=== PATIENT | male | born 1955 | race Caucasian/White ===

== ENCOUNTER → 2018-09-16 11:47 | Outpatient (CLI) | payer BC, SELFPAY ==
[2018-09-16 13:07] LABS: Blood Urea Nitrogen 25 mg/dL (7-18); Calcium 9.8 mg/dL (8.5-10.1); Carbon Dioxide 30 mmol/L (21.0-32.0); Chloride 108 mmol/L (98-107); Creatinine,Serum 1.29 mg/dL (0.70-1.30); Estimated Glomerular Filt Rate 56 ml/min (>60); GFR (African American) 68 ML/MIN (>60); Glucose 100 mg/dL (74-106); Sodium 145 mmol/L (136-145)
[2018-09-16 13:10] LABS: Prostate Specific Ag, Diagnost < 0.05 ng/mL (0.0-4.0)
== END ==
PROVIDERS: Visit Provider Urology
DX: C61 Malignant neoplasm of prostate (principal); N28.9 Disorder of kidney and ureter, unspecified
CPT/HCPCS: 36415; 80048; 84153

== ENCOUNTER 2020-09-24 11:22 | Emergency (ER) | payer MEDICARE, SELFPAY ==
[2020-09-24 12:07] VITALS: BP 141/78; PULSE 68; RESP 19; TEMP 36.9; O2SAT 98; BMI 26.2
--- NOTE | 2020-09-24 12:15 | HMH.EDUTC ---
[facility] Disposition Clinical Impression: Urinary problem in male Disposition: Home, Self-Care Condition on Discharge: Good Instructions: DI for Flank Pain Additional Instructions: Make sure that you are drinking plenty of fluids *Follow up immediately if pain returns or worsens Straight to the ER if any life threatening symptoms Return if needed Referrals: Katalina Victor MD [Primary Care Provider] - As needed Edmund Hemphill MD [Staff Physician] - Time of Disposition: 12:32 Medical Decision Making - Renzo Inquiry Pt receiving controlled substance: No Renzo was queried for this patient: No Vital Signs: 09/24/20 12:07 09/24/20 12:43 Temperature 98.4 F 98.4 F Temperature Source Oral Oral Pulse Rate 68 Pulse Rate [Right Brachial] 68 Respiratory Rate 19 19 Blood Pressure 141/78 H Blood Pressure [Right Arm] 141/78 H Blood Pressure Mean [Right Arm] 99 Blood Pressure Source Automatic Cuff Blood Pressure Source [Right Arm] Automatic Cuff Blood Pressure Position Sitting Blood Pressure Position [Right Arm] Sitting 02 Sat by Pulse Oximetry 98 Oxygen Delivery Method Room Air - Lab Data Lab results reviewed: Yes: I reviewed the patient's lab results. Medical Decision Narrative: Patient family initially requesting CT to rule out Kidney stone, family informed that CT could not be done in the [facility] and he would have to be transferred to the ED SPoke with patient and patient initially agreed to be transferred to the ED, spoke with ED physician Dr Zayas and informed him of patient request for CT and that patient would have to be transferred to ED for test and he agreed with transfer, then spoke with patient again about transfer and patient refused transfer to the ED at time he discussed with family and advised that he was not having any pain at this time and would return to the ED if pain returned and/or worsened and family agreed or follow up with Dr Hemphill on Saturday Patient had prostate previously removed, Patient states that he is feeling ok at this time and not having any flank pain [facility] HPI - General Stated complaint: kidney stone Time Seen by Provider: 09/24/20 12:15 Mode of Arrival: Family Vehicle Description of Symptoms (Recalled from Triage Doc. by RN): Pt c/o possible kidney stone, trouble with urination, left side flank pain, and nausea since Thurs HEENT Symptoms (Recalled from RN notes): No Resp Symptoms (Recalled from RN notes): No Skin Symptoms (Recalled from RN notes): No MS Symptoms (Recalled from RN notes): No Functional Status (Recalled from RN notes): wnl - History of Present Illness Provider Complaint: Patient states that he has a history of Kidney stones State that on he started having pain in his right flank area that would come and go like he had before with Kidney stone and made him sick at his stomach State that ever since he has been having urination issues States that at times he will be urinating and then his urine stream will stop and he has to push to get it started and had some burning with urination State that this morning he had some flank pain in his left side and was unsure if he may have a kidney infection or stone and wanted to get his urine checked States - Related Data Home Medications Medication Instructions Recorded Confirmed apple cider vinegar 600 mg capsule mg PO cap 09/16/18 11/24/19 aspirin 81 mg tablet,delayed 81 mg PO DAILY 09/16/18 11/24/19 release atorvastatin 80 mg tablet 80 mg PO DAILY 09/16/18 11/24/19 cetirizine 10 mg tablet 10 mg PO DAILY PRN tab 09/16/18 11/24/19 levothyroxine 75 mcg capsule 75 mcg PO DAILY 09/16/18 11/24/19 allopurinol 100 mg tablet 100 mg PO DAILY 12/16/18 11/24/19 multivitamin,nl-npwj-[id number] 1 tab PO DAILY 12/16/18 11/24/19 Allergies Allergy/AdvReac Type Severity Reaction Status Date / Time No Known Allergies Allergy Unverified 11/24/19 11:04 - Worker's Comp Is this a Worker's Comp case?: No [facility] History
[2020-09-24 12:43] VITALS: BP 141/78; PULSE 68; RESP 19; TEMP 36.9; O2SAT 98
[2020-09-24 21:30] LABS: Apearance,Urine Clear (Clear); Bilirubin,Urine Negative (Negative); Blood, Urine Negative (Negative); Color,Urine Yellow (Yellow); Glucose,Urine (UA) Negative (Negative); Ketones,Urine Negative (Negative); PH,Urine 5.5 (5.0-8.5); Protein,Urine Negative (Negative)
[2020-09-24 21:31] LABS: UTC Leukocyte Esterase,Urine Negative (Negative); UTC Nitrate,Urine Negative (Negative); Urobilinogen,Urine 0.2 EU/dl (0.2)
== END 2020-09-24 12:43 | disposition home or self-care (01) ==
PROVIDERS: Emergency Provider Nurse Practitioner; PCP Family Medicine
DX: N39.9 Disorder of urinary system, unspecified (principal); E78.5 Hyperlipidemia, unspecified
CPT/HCPCS: G0463; 81003; 99201

== ENCOUNTER → 2020-11-29 08:13 | Outpatient (CLI) | payer MEDICARE, SELFPAY | PROVIDERS: PCP Family Medicine; Visit Provider Family Medicine | DX: Z20.822 Contact with and (suspected) exposure to COVID-19 (principal); U07.1 COVID-19; R50.9 Fever, unspecified | CPT/HCPCS: U0003 ==

== ENCOUNTER → 2020-11-30 07:56 | Outpatient (CLI) | payer MEDICARE, SELFPAY ==
[2020-11-30] VITALS (7 sets, daily range): BP systolic 107–138; BP diastolic 67–79; PULSE 71–89; RESP 18; TEMP 36.7–36.9; O2SAT 91–98
== END ==
PROVIDERS: PCP Family Medicine; Visit Provider Family Medicine
DX: U07.1 COVID-19 (principal)
CPT/HCPCS: 96365

== ENCOUNTER → 2020-12-14 17:19 | Outpatient (CLI) | payer MEDICARE, SELFPAY ==
--- NOTE | 2020-12-14 | XR_ITS ---
PROCEDURE: XR CHEST AP CLINICAL HISTORY: COMPARISON: CR CXR CHEST(2 VIEWS-NOT PORTABLE) from 09/09/2015 FINDINGS: The cardiomediastinal silhouette and pulmonary vascularity are within normal limits. There are sternal wire sutures and a surgical clip probably from previous CABG. The lungs are clear without infiltrates, suspicious nodules, or pleural effusions. There is minimal discoid atelectasis right costophrenic angle. No acute bony abnormalities. IMPRESSION: Minimal right basilar atelectasis or scarring, no acute pneumonic infiltrate seen Dictated by: Dr. Vadim Swenson MD 12/15/2020 08:38 Dr. Vadim Swenson MD in [place] 12/15/2020 08:38
[2020-12-14 18:17] LABS: Basophils % 0.2 % (0.1-2.0); Eosinophils % 0.4 % (0.1-12.0); Hematocrit 42.6 % (42.0-52.0); Hemoglobin 13.6 g/dL (14.1-18.0); Lymphocytes # 0.4 K/mm3 (0.7-4.5); Lymphocytes % 4.7 % (10-50); Mean Corpuscular Volume 100.1 fl (80-94); Mean Platelet Volume 7.9 fl (7.4-10.4); Monocytes # 0.3 K/mm3 (0.1-1.0); Monocytes % 3.9 % (1.7-9.3); Neutrophils # 7.7 K/mm3 (1.8-7.8); Neutrophils % 90.9 % (37.0-80.0); Platelet Count 154 K/mm3 (142-424); Red Blood Count 4.25 M/mm3 (4.60-6.20); White Blood Count 8.5 K/mm3 (4.8-10.8)
[2020-12-14 18:21] LABS: MANUAL DIFFERENTIAL MANUAL DIFFERENTIAL (MANUAL DIFF)
[2020-12-14 20:25] LABS: Lymphocytes % 4 % (10-50); Macrocytosis 1+; Monocytes % 1 % (2-9); Neutrophils % 95 % (42-76); Platelet Estimate Normal; Total Cells Counted 100
== END ==
PROVIDERS: PCP Family Medicine; Visit Provider Family Medicine
DX: R06.02 Shortness of breath (principal)
CPT/HCPCS: 36415; 71045; 85007; 85025

== ENCOUNTER → 2021-02-03 11:05 | Outpatient (CLI) | payer MEDICARE, SELFPAY ==
--- NOTE | 2021-02-03 11:14 | XR_ITS ---
PROCEDURE: XR FOOT LT MIN 3V CLINICAL INDICATION: LT FOOT SWELLING,LT FOOT PAIN COMPARISON: No exams were available for comparison FINDINGS: Osteoarthritic changes 1st MTP joint. There has been prior amputation at the distal aspect of the proximal phalanx of the 4th toe. Generalized vascular calcification. No acute fracture or dislocation. No bony destructive process Other findings:None. IMPRESSION: Chronic changes as described above Dictated by: Raúl Ellis MD 02/03/2021 13:07 Raúl Ellis MD in [place] 02/03/2021 13:07
== END ==
PROVIDERS: PCP Family Medicine; Visit Provider Nurse Practitioner Family
DX: M79.89 Other specified soft tissue disorders (principal); M79.672 Pain in left foot
CPT/HCPCS: 73630

== ENCOUNTER → 2021-03-20 07:12 | Outpatient (CLI) | payer MEDICARE, SELFPAY ==
[2021-03-20 08:41] LABS: Prostate Specific Ag, Diagnost < 0.064 ng/ml (0.0-4.0)
== END ==
PROVIDERS: Visit Provider Urology
DX: R97.20 Elevated prostate specific antigen [PSA] (principal)
CPT/HCPCS: 36415; 84153

== ENCOUNTER 2023-09-19 18:37 | Emergency (ER) | payer MEDICARE, SELFPAY ==
[2023-09-19 18:38] VITALS: BP 155/85; PULSE 71; RESP 16; TEMP 36.7; O2SAT 99; BMI 25.8
--- NOTE | 2023-09-19 18:44 | HMH.EDGENADL ---
Discharge Plan Disposition Patient Disposition: Home, Self-Care Condition: Good Chief Complaint: PAIN Prescriptions Prescriptions: No Action atorvastatin 80 mg tablet 80 mg PO DAILY levothyroxine 75 mcg capsule 75 mcg PO DAILY cetirizine [Allergy Relief (cetirizine)] 10 mg tablet 10 mg PO DAILY PRN aspirin [Adult Low Dose Aspirin] 81 mg tablet,delayed release (DR/EC) 81 mg PO DAILY apple cider vinegar 600 mg capsule PO allopurinol 100 mg tablet 100 mg PO DAILY Complete Multivitamin tablet 1 tab PO DAILY Referrals Follow up/Referrals: Katalina Victor MD [Primary Care Provider] - See instructions Clinical Impressions Clinical Impression: Kidney stone Stand Alone Forms Stand Alone Forms: Transfer Record - ED Instructions Patient Instructions: DI for Kidney Stones Discharge ED Provider: Daxa Pandey General Adult HPI General Chief complaint: PAIN Stated complaint: back pain Time Seen by Provider: 09/19/23 18:39 History of Present Illness HPI narrative: Patient has a PMHx significant for prostate cancer s/p resection, CKD, CAD status post CABG x 3 who presents to the ED with complaints of left leg pain. Patient notes that since 4 PM today, he has been having progressively worsening sharp, stabbing, colicky pain in the left flank. Patient notes a long history of kidney stones, but has not had one in a few years. Patient denies any hematuria, dysuria. Related Data Home Medications Medication Instructions Recorded Confirmed apple cider vinegar 600 mg capsule mg PO 09/16/18 03/24/21 aspirin 81 mg tablet,delayed 81 mg PO DAILY 09/16/18 03/24/21 release (Adult Low Dose Aspirin) atorvastatin 80 mg tablet 80 mg PO DAILY 09/16/18 03/24/21 cetirizine 10 mg tablet (Allergy 10 mg PO DAILY PRN 09/16/18 03/24/21 Relief (cetirizine)) levothyroxine 75 mcg capsule 75 mcg PO DAILY 09/16/18 03/24/21 allopurinol 100 mg tablet 100 mg PO DAILY 12/16/18 03/24/21 multivitamin,[id number]-[id number] 1 tab PO DAILY 12/16/18 03/24/21 (Complete Multivitamin tablet) Allergies Allergy/AdvReac Type Severity Reaction Status Date / Time No Known Allergies Allergy Unverified 03/24/21 14:37 [facility] Disclaimer: The information contained in this section may have been updated after the patient was seen, as this information can be updated by other users. Social History Smoking Status: Never smoker alcohol intake: never substance use type: denies use current occupational status: employed and retired Travel in the last 8 weeks: None household members: spouse housing: house ROS Obtained: Yes All systems reviewed & no additional complaints except as documented Physical Exam General General appearance: alert and in no apparent distress Head Head exam: atraumatic, normocephalic and normal inspection Eye Eye exam: Present normal appearance, PERRL and EOMI; Absent scleral icterus or nystagmus ENT ENT exam: Present normal exam, mucous membranes moist and normal external ear exam Neck Neck exam: Present normal inspection, full ROM and trachea midline Chest Chest inspection: Present normal inspection and symmetric chest wall rise; Absent tenderness Respiratory Respiratory exam: Present normal lung sounds bilaterally; Absent respiratory distress, wheezes or accessory muscle use Cardiovascular Cardiovascular exam: Present regular rate, normal rhythm and normal heart sounds Abdominal Exam Abdominal exam: Present soft; Absent distention, tenderness, guarding, rebound, rigidity, trauma, ascites or pulsatile mass Abdominal tenderness: Present LLQ exam: Present deferred Extremities Exam Extremities exam: Present normal inspection and full ROM; Absent tenderness Back Exam Back exam: Present normal inspection and full ROM; Absent tenderness Neurological Exam Neurological exam: Present alert, oriented X3, normal gait and motor sensory deficit Psychiatric
--- NOTE | 2023-09-19 18:46 | CT_ITS ---
PROCEDURE INFORMATION: Exam: CT Abdomen And Pelvis With Contrast Exam date and time: 09/19/2023 7:21 PM Age: 68 years old Clinical indication: Abdominal pain; Flank; Left; Additional info: L flank pain, possible stone TECHNIQUE: Imaging protocol: Computed tomography of the abdomen and pelvis with contrast. Radiation optimization: All CT scans at this facility use at least one of these dose optimization techniques: automated exposure control; mA and/or kV adjustment per patient size (includes targeted exams where dose is matched to clinical indication); or iterative reconstruction. Contrast material: ISOVUE; Contrast volume: 75 ml; Contrast route: IV; REPORTING DATA: Count of CT and Cardiac NM exams in prior 12 months: This patient has received 0 known CTs and 0 known cardiac nuclear medicine studies in the 12 months prior to the current study. COMPARISON: ABDPELW/O CT ABD PELVIS W/O CONTRAST 07/09/2017 5:09 PM FINDINGS: Lungs: Lung bases are clear. Coronary arteries: Extensive coronary artery calcifications suggesting coronary artery disease. Liver: Normal. No mass. Gallbladder and bile ducts: Normal. No calcified stones. No ductal dilation. Pancreas: A complex inhomogeneous 2.3 x 1.6 x 2.0 cm mixed cystic solid lesion in the posterior pancreatic head centered on axial image 58 and coronal image 34. This has developed in the interval. Pancreas otherwise unremarkable. Spleen: Normal. No splenomegaly. Adrenal glands: Normal. No mass. Kidneys and ureters: Multiple nonobstructing right kidney stones largest measuring 6 mm. Multifocal right renal scarring. Subcentimeter low-density lesions noted in the superior and anterior mid right kidney too small to characterize but likely cysts. No follow-up of these lesions advised. A 2 cm cyst in the anterior mid left kidney and a 1.8 cm cyst in the anterolateral mid to lower left kidney. No follow-up of these lesions advised. Nonobstructing left kidney stones largest measuring 4 mm noted. Obstructing 5 x 7 mm proximal left ureteral stone 2 cm distal to the ureteropelvic junction with associated mild hydroureteronephrosis. Remainder of the left ureter is normal. Stomach and bowel: Multiple diverticula in the sigmoid colon. Colon otherwise unremarkable. GI tract structures otherwise unremarkable with no evident wall thickening allowing for incomplete distention. Appendix: Appendix is normal. No evidence of appendicitis. Intraperitoneal space: Unremarkable. No free air. No significant fluid collection. Vasculature: Atherosclerotic changes of the aorta and iliacs noted. No evidence of aneurysm. Lymph nodes: Unremarkable. No enlarged lymph nodes. Urinary bladder: Unremarkable as visualized. Reproductive: Status post prostatectomy.. Bones/joints: Unremarkable. No acute fracture. Soft tissues: Unremarkable. IMPRESSION: 1. Obstructing 5 x 7 mm proximal left ureteral stone with mild left-sided hydroureteronephrosis. 2. Bilateral nonobstructing kidney stones. 3. Interval development of a 2.3 cm complex inhomogeneous mixed solid cystic mass lesion in the posterior pancreatic head. Further assessment with nonemergent MRI of the pancreas is advised. 4. Extensive coronary artery calcifications suggesting coronary artery disease. 5. Additional nonemergent findings as above. COMMENTS: Consistent with the [employer]'s Incidental Findings Committee white paper (J Am Howard Radiol 2018): Any incidental renal lesion less than 1 cm or classified as too small to characterize, or any incidental cystic renal lesion characterized as simple-appearing, is likely benign. No follow-up imaging is recommended for these lesions per consensus recommendations based on imagin
[2023-09-19 18:52] LABS: Microscopic, Urine URINE MICROSCOPIC (MICROSCOPIC)
[2023-09-19 18:59] LABS: Appearance,Urine CLEAR (Clear); Bilirubin,Urine Negative (Negative); Blood, Urine 3+ (Negative); Color,Urine YELLOW (Yellow); Glucose,Urine (UA) TRACE (Negative); Ketones,Urine Negative (Negative); Leukocyte Esterase,Urine Negative (Negative); Nitrate,Urine Negative (Negative); PH,Urine 5.5 (5.0-8.5); Protein,Urine Negative (Negative); Specific Gravity, Urine 1.025 (1.005-1.030); Urobilinogen,Urine 0.2 EU/dl (0.2)
[2023-09-19 19:01] LABS: Basophils % 0.5 % (0.1-2.0); Eosinophils # 0.1 K/mm3 (0.0-0.4); Eosinophils % 3.5 % (0.1-12.0); Hematocrit 45.7 % (42.0-52.0); Lymphocytes # 1.3 K/mm3 (0.7-4.5); Lymphocytes % 35.9 % (10-50); Mean Corpuscular HGB Conc 32.8 g/dL (31.8-35.4); Mean Corpuscular Hemoglobin 33.4 pg (27.0-31.2); Mean Corpuscular Volume 101.9 fl (80-94); Mean Platelet Volume 8.2 fl (7.4-10.4); Monocytes # 0.2 K/mm3 (0.1-1.0); Monocytes % 6.8 % (1.7-9.3); Neutrophils # 1.9 K/mm3 (1.8-7.8); Neutrophils % 53.3 % (37.0-80.0); Platelet Count 116 K/mm3 (142-424); Red Blood Count 4.48 M/mm3 (4.60-6.20); White Blood Count 3.5 K/mm3 (4.8-10.8)
[2023-09-19 19:03] LABS: Chloride 105 mmol/L (98-107); Potassium 4.5 mmoL/L (3.5-5.1); Sodium 141 mmol/L (136-145)
[2023-09-19 19:06] LABS: Alanine Aminotransferase 37 U/L (12-78); Albumin Level 4.4 g/dl (3.5-5.0); Albumin/Globulin Ratio 1.8 (1.1-1.8); Alkaline Phosphatase 84 U/L (38-126); Anion Gap 10.5 mEq/L (5-15); Aspartate Amino Transferase 40 U/L (17-59); Bilirubin,Total 0.6 mg/dl (0.2-1.3); Blood Urea Nitrogen 28 mg/dl (9-20); Calcium 8.9 mg/dl (8.4-10.2); Carbon Dioxide 30 mmol/L (22.0-30.0); Creatinine Clearance Estimated 53 mL/min (50-200); Estimated Glomerular Filt Rate 46 ml/min (>60); GFR (African American) 56 ML/MIN (>60); Globulin 2.4 g/dL (1.3-3.2); Glucose 189 mg/dl (74-100); Lipase 115 U/L (23-300); Total Protein,Serum 6.8 g/dl (6.3-8.2)
[2023-09-19 19:13] LABS: Bacteria,Urine Trace /lpf; Squamous Epithelial Cell,Urine Occasional #/hpf (0-5)
[2023-09-19 19:30] VITALS: BP 140/82; O2SAT 90
[2023-09-19 20:00] VITALS: BP 125/64; O2SAT 98
[2023-09-19 20:30] VITALS: BP 119/63; PULSE 58; O2SAT 93
--- NOTE | 2023-09-19 20:53 | PC.NURSE ---
Called [facility] about possible transfer per Dr Pandey. Spoke to Nicho KING and gave him all the pts information. Will call back when they find a room. FERMÍN
--- NOTE | 2023-09-19 21:21 | PC.NURSE ---
Notified provider that [facility] updated us that they do not have urology coverage this weekend.
--- NOTE | 2023-09-19 21:22 | PC.NURSE ---
received call back from [facility]. Spoke with drake. stated there is no uro coverage throughout [place], [place], [place]
--- NOTE | 2023-09-19 21:26 | PC.NURSE ---
[facility] has no Urology this date. CR
--- NOTE | 2023-09-19 21:26 | PC.NURSE ---
Per Dr Pandey called [facility] about possible transfer for Urology. Speaking with [facility] physician now. FERMÍN
[2023-09-19 21:56] VITALS: BP 137/81; PULSE 59; RESP 15; TEMP 37.1; O2SAT 93
--- NOTE | 2023-09-26 09:55 | PC.NURSE ---
urine culture results show klebsiella aerogenes and mixed urogenital morgan, PEr sample is contaminated, no further orders at this time
== END 2023-09-19 21:59 | disposition home or self-care (01) ==
PROVIDERS: Emergency Provider Emergency Medicine; PCP Family Medicine
DX: N20.0 Calculus of kidney (principal); N18.9 Chronic kidney disease, unspecified; I25.10 Atherosclerotic heart disease of native coronary artery without angina pectoris; Z85.46 Personal history of malignant neoplasm of prostate
CPT/HCPCS: 74177; 80053; 81001; 83690; 85025; 87086; 96361; 96374; 96375; 96376; 99285; J2405; Q9967

== ENCOUNTER 2023-10-08 00:31 | Emergency (ER) | payer MEDICARE, SELFPAY ==
[2023-10-08 00:34] VITALS: BP 143/84; PULSE 75; RESP 18; TEMP 36.6; O2SAT 97; BMI 25.1
--- NOTE | 2023-10-08 00:56 | HMH.EDGENADL ---
Discharge Plan Disposition Patient Disposition: Home, Self-Care Condition: Good Prescriptions Prescriptions: No Action atorvastatin 80 mg tablet 80 mg PO DAILY levothyroxine 75 mcg capsule 75 mcg PO DAILY cetirizine [Allergy Relief (cetirizine)] 10 mg tablet 10 mg PO DAILY aspirin [Adult Low Dose Aspirin] 81 mg tablet,delayed release (DR/EC) 81 mg PO DAILY apple cider vinegar 600 mg capsule 600 mg PO DAILY allopurinol 100 mg tablet 100 mg PO DAILY Complete Multivitamin tablet 1 tab PO DAILY Referrals Follow up/Referrals: Katalina Victor MD [Primary Care Provider] - See instructions Activity Restrictions/Add. Instructions Additional Instructions/Restrictions: You were evaluated in the ER today for urinary retention. Keep the Zamora catheter in place as directed. Call and make an appointment with Dr. Hemphill as soon as possible for reevaluation. Make an appoint with your primary care physician for reevaluation in 2 to 3 days. Return to the ER with new, worsening, or otherwise concerning symptoms. Clinical Impressions Clinical Impression: Acute urinary retention Instructions Patient Instructions: DI for Urinary Tract Infection (UTI), DI for Urinary Tract Infection in Children Discharge ED Provider: Colette Tidwell General Adult HPI General Chief complaint: Urogenital-Male Stated complaint: unable to urinate Time Seen by Provider: 10/08/23 00:40 Mode of Arrival: Ambulatory Source of Information: Patient Limitations: No Limitations Description of Symptoms (Recalled from ER Triage Doc. by RN): Patient had a urinary stent took out today, has not urinated good since. None since 1800. History of Present Illness HPI narrative: This 68-year-old male with a history of kidney stones presents to the ER with concerns of urinary retention. Patient states he had a kidney stone over that had to be broken up and removed. He states after that he had a urethral stent which she was instructed he could remove yesterday. He removed it around 8 AM on 10/07/2023 (yesterday). He states he urinated normally all day. He states his urine was slightly orange due to the medications he is on, but he denies blood. Patient states around 5 PM he last urinated normally. 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 After that, he has been unable to urinate. He states his bladder feels full and he has the sensation of needing to urinate but has failed multiple times despite straining and sitting to urinate. He denies fevers, chills, dysuria, flank pain, nausea, vomiting, diarrhea, or other positive review of systems at this time Related Data Home Medications Medication Instructions Recorded Confirmed apple cider vinegar 600 mg capsule 600 mg PO DAILY 09/16/18 10/08/23 aspirin 81 mg tablet,delayed 81 mg PO DAILY 09/16/18 10/08/23 release (Adult Low Dose Aspirin) atorvastatin 80 mg tablet 80 mg PO DAILY 09/16/18 10/08/23 cetirizine 10 mg tablet (Allergy 10 mg PO DAILY 09/16/18 10/08/23 Relief (cetirizine)) levothyroxine 75 mcg capsule 75 mcg PO DAILY 09/16/18 10/08/23 allopurinol 100 mg tablet 100 mg PO DAILY 12/16/18 10/08/23 multivitamin,uh-afti-qxkrxmlz 1 tab PO DAILY 12/16/18 10/08/23 (Complete Multivitamin tablet) Allergies Allergy/AdvReac Type Severity Reaction Status Date / Time No Known Allergies Allergy Unverified 03/24/21 14:37 [facility] Disclaimer: The information contained in this section may have been updated after the patient was seen, as this information can be updated by other users. Social History Smoking Status: Never smoker alcohol intake: never substance use type: denies use current occupational status: employed and retired Travel in the last 8 weeks: None household members: spouse housing: house ROS Obtained: Yes All systems reviewed & no additio
[2023-10-08 01:12] LABS: Microscopic, Urine URINE MICROSCOPIC (MICROSCOPIC)
[2023-10-08 01:14] LABS: Appearance,Urine CLEAR (Clear); Basophils % 0.7 % (0.1-2.0); Bilirubin,Urine Negative (Negative); Blood, Urine TRACE-I (Negative); Color,Urine YELLOW (Yellow); Eosinophils # 0.2 K/mm3 (0.0-0.4); Eosinophils % 4.8 % (0.1-12.0); Glucose,Urine (UA) Negative (Negative); Hematocrit 40.9 % (42.0-52.0); Hemoglobin 14.1 g/dL (14.1-18.0); Ketones,Urine Negative (Negative); Leukocyte Esterase,Urine Negative (Negative); Lymphocytes % 28.7 % (10-50); Mean Corpuscular HGB Conc 34.5 g/dL (31.8-35.4); Mean Corpuscular Hemoglobin 33.7 pg (27.0-31.2); Mean Corpuscular Volume 97.9 fl (80-94); Mean Platelet Volume 8.5 fl (7.4-10.4); Monocytes # 0.2 K/mm3 (0.1-1.0); Monocytes % 5.8 % (1.7-9.3); Neutrophils # 2.1 K/mm3 (1.8-7.8); Neutrophils % 59.9 % (37.0-80.0); Nitrate,Urine POSITIVE (Negative); Platelet Count 128 K/mm3 (142-424); Protein,Urine Negative (Negative); Red Blood Count 4.18 M/mm3 (4.60-6.20); Red Cell Distribution Width 13.9 % (11.5-17.5); Urobilinogen,Urine 0.2 EU/dl (0.2); White Blood Count 3.6 K/mm3 (4.8-10.8)
[2023-10-08 01:32] LABS: Anion Gap 9.1 mEq/L (5-15); Blood Urea Nitrogen 24 mg/dl (9-20); Calcium 8.6 mg/dl (8.4-10.2); Carbon Dioxide 27 mmol/L (22.0-30.0); Chloride 104 mmol/L (98-107); Creatinine Clearance Estimated 61 mL/min (50-200); Estimated Glomerular Filt Rate 55 ml/min (>60); GFR (African American) 66 ML/MIN (>60); Glucose 162 mg/dl (74-100); Potassium 4.1 mmoL/L (3.5-5.1); Sodium 136 mmol/L (136-145)
[2023-10-08 01:39] LABS: Bacteria,Urine 1+ /lpf; Mucus,Urine 1+ /lpf; Squamous Epithelial Cell,Urine Occasional #/hpf (0-5)
[2023-10-08 01:58] VITALS: BP 123/70; PULSE 58; RESP 18; TEMP 36.6; O2SAT 97
== END 2023-10-08 02:13 | disposition home or self-care (01) ==
PROVIDERS: Emergency Provider Emergency Medicine; PCP Family Medicine
DX: R33.9 Retention of urine, unspecified (principal); N13.39 Other hydronephrosis
CPT/HCPCS: 80048; 81001; 85025; 99285

== ENCOUNTER 2023-10-10 00:41 | Emergency (ER) | payer MEDICARE, SELFPAY ==
[2023-10-10 00:57] VITALS: BP 124/98; PULSE 70; RESP 20; TEMP 36.4; O2SAT 99; BMI 25.8
--- NOTE | 2023-10-10 00:58 | CT_ITS ---
PROCEDURE INFORMATION: Exam: CT Abdomen And Pelvis Without Contrast Exam date and time: 10/10/2023 1:09 AM Age: 68 years old Clinical indication: Abdominal pain; Flank; Right; Prior surgery; Surgery date: <1 month; Surgery type: 10/01/23 left lithotripsy; Additional info: R flank pain, recent stones TECHNIQUE: Imaging protocol: Computed tomography of the abdomen and pelvis without contrast. Radiation optimization: All CT scans at this facility use at least one of these dose optimization techniques: automated exposure control; mA and/or kV adjustment per patient size (includes targeted exams where dose is matched to clinical indication); or iterative reconstruction. REPORTING DATA: Count of CT and Cardiac NM exams in prior 12 months: This patient has received [address] and 0 known cardiac nuclear medicine studies in the 12 months prior to the current study. COMPARISON: CT ABDOMEN PELVIS W CON 09/19/2023 7:21 PM FINDINGS: Liver: Normal. No mass. Gallbladder and bile ducts: Normal. No calcified stones. No ductal dilation. Pancreas: Normal. No ductal dilation. Spleen: Normal. No splenomegaly. Adrenal glands: Normal. No mass. Kidneys and ureters: Mild bilateral hydroureteronephrosis. Several moderate-sized calyceal stones in the right kidney. Single tiny calyceal stone in the left kidney. Stable left renal cortical cysts. Stomach and bowel: Mild sigmoid diverticulosis. No bowel wall thickening or evidence of bowel obstruction. Appendix: The appendix is visualized and appears normal. Intraperitoneal space: Unremarkable. No free air. No significant fluid collection. Vasculature: Moderate diffuse atherosclerotic calcification of the aorta and iliac arteries. No evidence of aneurysm. Lymph nodes: Unremarkable. No enlarged lymph nodes. Urinary bladder: 2 mm stone in the area of the internal urethral sphincter (series 3, image 114). Small amount of gas in the bladder lumen, possibly due to recent Zamora catheterization. Bladder is otherwise unremarkable. Reproductive: Unremarkable as visualized. Bones/joints: Multilevel degenerative disc changes most severe in the upper lumbar spine. No vertebral body compression or acute fracture. Soft tissues: Unremarkable. IMPRESSION: Bilateral nephrolithiasis and mild bilateral hydroureteronephrosis. 2 mm stone in the area of the internal ureteral sphincter.
[2023-10-10 01:00] VITALS: PULSE 81; O2SAT 99
--- NOTE | 2023-10-10 01:02 | HMH.EDGENADL ---
Discharge Plan Disposition Patient Disposition: Home, Self-Care Prescriptions Prescriptions: No Action atorvastatin 80 mg tablet 80 mg PO DAILY levothyroxine 75 mcg capsule 75 mcg PO DAILY cetirizine [Allergy Relief (cetirizine)] 10 mg tablet 10 mg PO DAILY aspirin [Adult Low Dose Aspirin] 81 mg tablet,delayed release (DR/EC) 81 mg PO DAILY apple cider vinegar 600 mg capsule 600 mg PO DAILY allopurinol 100 mg tablet 100 mg PO DAILY Complete Multivitamin tablet 1 tab PO DAILY Referrals Follow up/Referrals: Katalina Victor MD [Primary Care Provider] - See instructions Activity Restrictions/Add. Instructions Additional Instructions/Restrictions: Please keep Zamora in place. Please follow-up with your urologist. Please return to the emergency department if you develop any new or worsening symptoms or become concerned for your health. Clinical Impressions Clinical Impression: Acute urinary retention Instructions Patient Instructions: DI for Urinary Tract Infection (UTI), DI for Urinary Tract Infection in Children Discharge ED Provider: Filemon Lara Adult HPI General Chief complaint: Urogenital-Male Stated complaint: Can not urinate, right side pain Time Seen by Provider: 10/10/23 00:44 History of Present Illness HPI narrative: 68-year-old male presents with concern for urinary retention and flank pain. He has had multiple issues over the last couple of weeks with kidney stone and obstruction, stent placement, stent removal, urinary retention. He reports that he was seen by urology earlier today/yesterday and had his Zamora removed. He reports this evening he has been having worsening pelvic and right flank pain and has been unable to urinate. Denies fever at home. Related Data Home Medications Medication Instructions Recorded Confirmed apple cider vinegar 600 mg capsule 600 mg PO DAILY 09/16/18 10/08/23 aspirin 81 mg tablet,delayed 81 mg PO DAILY 09/16/18 10/08/23 release (Adult Low Dose Aspirin) atorvastatin 80 mg tablet 80 mg PO DAILY 09/16/18 10/08/23 cetirizine 10 mg tablet (Allergy 10 mg PO DAILY 09/16/18 10/08/23 Relief (cetirizine)) levothyroxine 75 mcg capsule 75 mcg PO DAILY 09/16/18 10/08/23 allopurinol 100 mg tablet 100 mg PO DAILY 12/16/18 10/08/23 multivitamin,rs-hvdm-lbzkgynr 1 tab PO DAILY 12/16/18 10/08/23 (Complete Multivitamin tablet) Allergies Allergy/AdvReac Type Severity Reaction Status Date / Time No Known Allergies Allergy Unverified 03/24/21 14:37 [facility] Disclaimer: The information contained in this section may have been updated after the patient was seen, as this information can be updated by other users. Social History Smoking Status: Never smoker alcohol intake: never substance use type: denies use current occupational status: employed and retired Travel in the last 8 weeks: None household members: spouse housing: house ROS Obtained: Yes All systems reviewed & no additional complaints except as documented Physical Exam General General appearance: alert and in distress (Secondary to pain) Head Head exam: atraumatic and normocephalic Eye Eye exam: Present normal appearance, PERRL and EOMI ENT ENT exam: Present normal oropharynx and normal external ear exam Neck Neck exam: Present normal inspection and full ROM Chest Chest inspection: Present normal inspection and symmetric chest wall rise; Absent tenderness Respiratory Respiratory exam: Present normal lung sounds bilaterally; Absent respiratory distress Cardiovascular Cardiovascular exam: Present regular rate and normal rhythm Abdominal Exam Abdominal exam: Present soft and tenderness (Suprapubic); Absent distention or guarding Extremities Exam Extremities exam: Present normal inspection; Absent edema or joint swelling Back Exam Back exam: Present normal inspection and CVA tenderness (R) Neurological Exam Neurological exam: Pr
--- NOTE | 2023-10-10 01:14 | PC.NURSE ---
Pt back in room from CT. Went in toom to give pt tylenol and toradol and he states his pain has eased up and he doesn't feel like he needs the medication right now.
[2023-10-10 01:34] LABS: Microscopic, Urine URINE MICROSCOPIC (MICROSCOPIC)
[2023-10-10 01:35] LABS: Appearance,Urine CLEAR (Clear); Bilirubin,Urine Negative (Negative); Blood, Urine 2+ (Negative); Color,Urine YELLOW (Yellow); Glucose,Urine (UA) TRACE (Negative); Ketones,Urine Negative (Negative); Leukocyte Esterase,Urine TRACE (Negative); Nitrate,Urine Negative (Negative); Protein,Urine Negative (Negative); Urobilinogen,Urine 0.2 EU/dl (0.2)
--- NOTE | 2023-10-10 01:40 | PC.NURSE ---
Zamora catheter placed per Marco CASTILLO. Pt tolerated well. 300ml clear/yellow urine drained upon insertion.
[2023-10-10 01:47] VITALS: BP 130/78; PULSE 61; RESP 18; O2SAT 96
[2023-10-10 01:53] LABS: WBC,Urine Occasional #/hpf (0-3)
[2023-10-10 01:54] LABS: Squamous Epithelial Cell,Urine Occasional #/hpf (0-5)
[2023-10-10 02:21] VITALS: BP 138/80; PULSE 59; RESP 18; TEMP 36.8; O2SAT 96
== END 2023-10-10 02:22 | disposition home or self-care (01) ==
PROVIDERS: Emergency Provider Emergency Medicine; PCP Family Medicine
DX: R10.2 Pelvic and perineal pain (principal); R33.9 Retention of urine, unspecified
CPT/HCPCS: 51702; 74176; 81001; 96372; 99284

== ENCOUNTER 2024-06-23 12:17 | Outpatient (CLI) | payer MEDICARE, SELFPAY ==
--- NOTE | 2024-06-23 12:28 | XR_ITS ---
FINAL REPORT CLINICAL HISTORY: Right renal stones, follow-up FINDINGS: A single view of the abdomen was obtained. There is a nonobstructive bowel gas pattern. There are no abnormally dilated loops of small bowel. There were multiple, abnormal radiodensities in the projection of the right kidney measuring up to 7 mm. IMPRESSION: Right nephrolithiasis. Reviewed, Interpreted and Dictated by Moises Benitez MD Transcribed by Jayda Charels Authenticated and [facility]
== END 2024-06-23 23:59 | disposition home or self-care (01) ==
LOC: RAD 12:21
PROVIDERS: PCP Family Medicine; Visit Provider Family Medicine
DX: N20.0 Calculus of kidney (principal)
CPT/HCPCS: 74018

== ENCOUNTER 2024-09-07 14:15 | Outpatient (CLI) | payer OTHER, SELFPAY ==
--- NOTE | 2024-09-07 14:19 | MR_ITS ---
FINAL REPORT CLINICAL HISTORY: SYNDROME OF SHOULDER FINDINGS: Multiplanar MR imaging of the right shoulder was performed without contrast. The tendons of the rotator cuff are intact without evidence of rotator cuff tear. The a.c. joint is intact. A small amount of fluid is present in the subacromial/subdeltoid bursa. There is diffuse labral degeneration without a well-defined tear identified. The long head of the biceps tendon is intact. A small glenohumeral joint effusion is seen. Moderate to severe glenohumeral degenerative changes are seen with multiple subchondral cyst present. The musculature is intact. There is no evidence of soft tissue mass. IMPRESSION: No evidence of rotator cuff tear or labral tear. Moderate to severe glenohumeral degenerative change with multiple subchondral cyst present. Authenticated and [facility]
== END 2024-09-07 23:59 | disposition home or self-care (01) ==
LOC: RAD 14:16
PROVIDERS: PCP Internal Medicine Adolescent Medicine; Visit Provider Internal Medicine Adolescent Medicine
DX: M75.101 Unspecified rotator cuff tear or rupture of right shoulder, not specified as traumatic (principal)
CPT/HCPCS: 73221

== ENCOUNTER 2025-04-03 18:30 | Emergency (ER) | payer MEDICARE, SELFPAY ==
--- OUTSIDE RECORDS SUMMARY | 2025-04-03 18:57 | XMS_ITS ---
Author Organization [facility] Address 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 CABG x3, 2012, OWENS to LAD, SVG to PDA. b. Left heart catheterization, 07/29/2015: 3/3 grafts patent. c. MPS, 08/11/2015 normal. EF 60%. d. 09/06/2021: LHC at [facility], patent SVG-OM, SVG- PDA, and OWENS-LAD. Occluded RCA, distal left main 80% heavily calcified. LVEDP 16, lvef 60-65% HLD (hyperlipidemia) 04/19/2016 Overview (09/20/2023): On statin therapy HTN (hypertension) 04/19/2016 Current Treatment and Therapy Plans No current plan information found. Past Treatment and Therapy Plans No past plan information found. Lifetime Dose Tracking * Chemical Lifetime Dose Automatic Entry Manual Entr y Fluoro Time 0.22 minutes 0.22 minutes 0 minutes Air Kerma 8.8 mGy 8.8 mGy 0 mGy Resolved Problems Problem Noted Date Diagnosed Date Resolved Date Acute kidney injury superimposed on CKD 09/20/2023 09/22/2023
--- OUTSIDE RECORDS SUMMARY | 2025-04-03 18:57 | XMS_ITS | Data Portability ---
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 POSTOPERATIVE DIAGNOSIS: Mild bladder neck contracture. PROCEDURE: Cystoscopy with urethral dilation of bladder neck. SURGEON: Joby Oliveira M.D. ANESTHESIA: General. DRAINS: None. SPECIMENS: None. FINDINGS: Mild to moderate bladder neck contracture. BRIEF HISTORY: The patient is a 61-year-old gentleman with a history of robotic prostatectomy approximately one year ago. He had a bladder neck contracture in May which required incision. He also had positive margins and had radiation therapy completed in September. He has recently noticed a decreased flow of stream. He has had no incontinence. There was incontinence is a significant concern to him. He has excellent urinary control at this time. Two days ago, his PSA was non-detectable in the office. He presents today for a cystoscopy and possible repeat incision of bladder neck contracture. OPERATIVE NOTE: After satisfactory general anesthesia, he was carefully placed in the dorsal lithotomy position. The genital area was prepped and draped in the normal fashion. The 22-Honduran cystoscope sheath was introduced under direct vision with the 30 degree lens. His urethra appeared normal back to his bulbous urethra. He had a narrowed area at the most proximal bulbous urethra and then, at the bladder neck was snug on the scope but could be negotiated into the bladder. I elected to just dilate his bladder neck and not incise any tissue. The bladder was drained and the cystoscope was removed. His urethra was then calibrated rather easily to 28-Honduran with the Katlyn sounds. Xylocaine jelly was instilled in the urethra. He was placed on Bactrim double strength, b.i.d., for one week. [email or web address] Not available 12/03/2017 12:04:53 Plan of Treatment Reminders Order Date Submit Date Provider Last Modified By Organization Details Last Modified Time Details Appointments None recorded. Lab PSA, serum or plasma 2017 018 [facility], [address], [address], [place], [address], 8 17:47:37 urinalysi s, dipstick, auto 2017 018 [facility], [address], [address], [place], [address], 8 17:47:37 BMP, serum or plasma 2017 018 [facility], [address] [place] [address], [address], 8 20:44:12 urinalysi s, dipstick, auto [address] [facility], [address], [address], [place], [address], 8 11:38:57 urinalysi s, dipstick, auto [address] [facility], [address], [address], [place], [address], 8 16:22:04 PSA, serum or plasma 2017 018 [email or web address] [facility], [address], [address], [place], [address], 8 16:22:04 urinalysi s, dipstick, auto 2016 017 [email or web address] [facility], [address], [address], [place], [address], 7 23:09:13 Referral None recorded. Procedures None recorded. Surgeries None recorded. Imaging None recorded. Medication Orders Bactrim DS 800 mg-160 mg tablet 2017 018 [id number], [address], [id number], 8 10:37:24 Patient TargetsNo targets recorded. Patient Instructions Encounter Date Encounter Id Patient Instructions Last Modified By Organization Details Last Modified Time 10/23/2017 [id number] prostate cancer: care instructions [email or web address] Not available 10/23/2017 23:09:13 02/14/2018 [id number] healthy together [email or web address] Not availabl e 02/14/2018 14:19:20 Reason for Referral None Reported. Results Created Date Observation Date Name Description Value Unit Range Abnormal Flag Note LastModifiedBy Organization Detail LastModifiedTime 02/15/20 18 02/14/2018 urina lysis , dipst ick, auto Unknown Analyte Yellow Not Available [facility] [address], [place], [address], 02/14/2018 13:43:42 02/15/20 18 02/14/2018 urina lysis , dipst ick, auto Unknown Analyte Clear Not Available [facility] [address], [place], [address], 02/14/2018 13:43:42 02/15/20 18 02/14/2018 urina lysis , dipst ick, auto Unknown Analyte 1.020 Not Available [facility] [address], [place], [address], 02/14/2018 13:43:42 02/15/20 18 02/14/2018 urina lysis , dipst ick, auto Unknown Analyte 5.0 Not Available [facility] [address] [facility] [address], [place], [address], 02/14/2018 13:43:42 02/15/20 18 02/14/2018 urina lysis , dipst ick, auto Unknown Analyte Negati ve Not Available [facility] [address] [facility] [address], [place], [address], 02/14/2018 13:43:42 02/15/20 18 02/14/2018 urina lysis , dipst ick, auto Unknown Analyte Negati ve Not Available [facility] [address] [facility] [address], [place], [address], 02/14/2018 13:43:42 02/15/20 18 02/14/2018 urina lysis , dipst ick, auto Unknown Analyte Negtiv e Not Available [facility] [address] [facility] [address], [place], [address], 02/14/2018 13:43:42 02/15/20 18 02/14/2018 urina lysis , dipst ick, auto Unknown Analyte Normal Not Available [facility] [address] [facility] [address], [place], [address], 02/14/2018 13:43:42 02/15/20 18 02/14/2018 urina lysis , dipst ick, auto Unknown Analyte Negati ve Not Available [facility] [address], [place], [address], 02/14/2018 13:43:42 02/15/20 18 02/14/2018 urina lysis , dipst ick, auto Unknown Analyte 1 mg/dl Not Available [facility] [address], [place], [address], 02/14/2018 13:43:42 02/15/20 18 02/14/2018 urina lysis , dipst ick, auto Unknown Analyte Negati ve Not Available [facility] [address], [place], [address], 02/14/2018 13:43:42 02/15/20 18 02/14/2018 urina lysis , dipst ick, auto Unknown Analyte Negati ve Not Available [facility] [address], [place], [address], 02/14/2018 13:43:42 02/15/20 18 02/14/2018 urina lysis , dipst ick, auto Unknown Analyte Clean Catch Not Available [facility] [address], [place], [address], 02/14/2018 13:43:42 02/15/20 18 02/14/2018 urina lysis , dipst ick, auto Unknown Analyte Automa pedrito Not Available [facility] [address], [place], [address], 02/14/2018 13:43:42 12/13/19 18 12/13/2017 urina lysis , dipst ick, auto Unknown Analyte Yellow Not Available [facility] [address], [place], [address], 12/13/2017 14:54:43 12/13/19 18 12/13/2017 urina lysis , dipst ick, auto Unknown Analyte Clear Not Available [facility] [address], [place], [address], 12/13/2017 14:54:43 12/13/19 18 12/13/2017 urina lysis , dipst ick, auto Unknown Analyte 1.015 Not Available [facility] [address] [place] [address] [address], [place], [address], 12/13/2017 14:54:43 12/13/19 18 12/13/2017 urina lysis , dipst ick, auto Unknown Analyte 5.0 Not Available [facility] [address], [place], [address], 12/13/2017 14:54:43 12/13/19 18 12/13/2017 urina lysis , dipst ick, auto Unknown Analyte Negati ve Not Available [facility] [address], [place], [address], 12/13/2017 14:54:43 12/13/19 18 12/13/2017 urina lysis , dipst ick, auto Unknown Analyte Negati ve Not Available [facility] [address] [facility] [address], [place], [address], 12/13/2017 14:54:43 12/13/19 18 12/13/2017 urina lysis , dipst ick, auto Unknown Analyte Negtiv e Not Available [facility] [address], [place], [address], 12/13/2017 14:54:43 12/13/19 18 12/13/2017 urina lysis , dipst ick, auto Unknown Analyte Normal Not Available [facility] [address], [place], [address], 12/13/2017 14:54:43 12/13/19 18 12/13/2017 urina lysis , dipst ick, auto Unknown Analyte Negati ve Not Available [facility] [address], [place], [address], 12/13/2017 14:54:43 12/13/19 18 12/13/2017 urina lysis , dipst ick, auto Unknown Analyte Normal Not Available [facility] [address], [place], [address], 12/13/2017 14:54:43 12/13/19 18 12/13/2017 urina lysis , dipst ick, auto Unknown Analyte Negati ve Not Available [facility] [address], [place], [address], 12/13/2017 14:54:43 12/13/19 18 12/13/2017 urina lysis , dipst ick, auto Unknown Analyte Negati ve Not Available [facility] [address], [place], [address], 12/13/2017 14:54:43 12/13/19 18 12/13/2017 urina lysis , dipst ick, auto Unknown Analyte Clean Catch Not Available [facility] [address], [place], [address], 12/13/2017 14:54:43 12/13/19 18 12/13/2017 urina lysis , dipst ick, auto Unknown Analyte Automa pedrito Not Available [facility] [address], [place], [address], 12/13/2017 14:54:43 11/27/19 18 11/27/2017 urina lysis , dipst ick, auto Unknown Analyte Yellow Not Available [facility] [address] [place] [address] [address], [place], [address], 11/27/2017 15:58:56 11/27/19 18 11/27/2017 urina lysis , dipst ick, auto Unknown Analyte Clear Not Available [facility] [address], [place], [address], 11/27/2017 15:58:56 11/27/19 18 11/27/2017 urina lysis , dipst ick, auto Unknown Analyte 1.020 Not Available [facility] [address] [place] [address] [address], [place], [address], 11/27/2017 15:58:56 11/27/19 18 11/27/2017 urina lysis , dipst ick, auto Unknown Analyte 5.0 Not Available [facility] [address] [place] [address] [address], [place], [address], 11/27/2017 15:58:56 11/27/19 18 11/27/2017 urina lysis , dipst ick, auto Unknown Analyte Negati ve Not Available [facility] [address], [place], [address], 11/27/2017 15:58:56 11/27/19 18 11/27/2017 urina lysis , dipst ick, auto Unknown Analyte Negati ve Not Available [facility] [address], [place], [address], 11/27/2017 15:58:56 11/27/19 18 11/27/2017 urina lysis , dipst ick, auto Unknown Analyte Negtiv e Not Available [facility] [address], [place], [address], 11/27/2017 15:58:56 11/27/19 18 11/27/2017 urina lysis , dipst ick, auto Unknown Analyte Normal Not Available [facility] [address], [place], [address], 11/27/2017 15:58:56 11/27/19 18 11/27/2017 urina lysis , dipst ick, auto Unknown Analyte Negati ve Not Available [facility] [address], [place], [address], 11/27/2017 15:58:56 11/27/19 18 11/27/2017 urina lysis , dipst ick, auto Unknown Analyte Normal Not Available [facility] [address], [place], [address], 11/27/2017 15:58:56 11/27/19 18 11/27/2017 urina lysis , dipst ick, auto Unknown Analyte Negati ve Not Available [facility] [address], [place], [address], 11/27/2017 15:58:56 11/27/19 18 11/27/2017 urina lysis , dipst ick, auto Unknown Analyte Negati ve Not Available [facility] [address], [place], [address], 11/27/2017 15:58:56 11/27/19 18 11/27/2017 urina lysis , dipst ick, auto Unknown Analyte Clean Catch Not Available [facility] [address], [place], [address], 11/27/2017 15:58:56 11/27/19 18 11/27/2017 urina lysis , dipst ick, auto Unknown Analyte Automa pedrito Not Available [facility] [address], [place], [address], 11/27/2017 15:58:56 10/23/20 17 10/23/2017 urina lysis , dipst ick, auto Unknown Analyte Yellow Not Available [facility] [address], [place], [address], 10/23/2017 15:54:58 10/23/20 17 10/23/2017 urina lysis , dipst ick, auto Unknown Analyte Clear Not Available [facility] [address], [place], [address], 10/23/2017 15:54:58 10/23/20 17 10/23/2017 urina lysis , dipst ick, auto Unknown Analyte 1.020 Not Available [facility] [address], [place], [address], 10/23/2017 15:54:58 10/23/20 17 10/23/2017 urina lysis , dipst ick, auto Unknown Analyte 5.0 Not Available [facility] [address], [place], [address], 10/23/2017 15:54:58 10/23/20 17 10/23/2017 urina lysis , dipst ick, auto Unknown Analyte Negati ve Not Available [facility] [address], [place], [address], 10/23/2017 15:54:58 10/23/20 17 10/23/2017 urina lysis , dipst ick, auto Unknown Analyte Negati ve Not Available [facility] [address], [place], [address], 10/23/2017 15:54:58 10/23/20 17 10/23/2017 urina lysis , dipst ick, auto Unknown Analyte Negtiv e Not Available [facility] [address], [place], [address], 10/23/2017 15:54:58 10/23/20 17 10/23/2017 urina lysis , dipst ick, auto Unknown Analyte Normal Not Available [facility] [address], [place], [address], 10/23/2017 15:54:58 10/23/20 17 10/23/2017 urina lysis , dipst ick, auto Unknown Analyte Negati ve Not Available [facility] [address], [place], [address], 10/23/2017 15:54:58 10/23/20 17 10/23/2017 urina lysis , dipst ick, auto Unknown Analyte 1 mg/dl Not Available [facility] [address], [place], [address], 10/23/2017 15:54:58 10/23/20 17 10/23/2017 urina lysis , dipst ick, auto Unknown Analyte Negati ve Not Available [facility] [address], [place], [address], 10/23/2017 15:54:58 10/23/20 17 10/23/2017 urina lysis , dipst ick, auto Unknown Analyte Negati ve Not Available [facility] [address], [place], [address], 10/23/2017 15:54:58 10/23/20 17 10/23/2017 urina lysis , dipst ick, auto Unknown Analyte Clean Catch Not Available [facility] [address], [place], [address], 10/23/2017 15:54:58 10/23/20 17 10/23/2017 urina lysis , dipst ick, auto Unknown Analyte Automa pedrito Not Available [facility] [address], [place], [address], 10/23/2017 15:54:58 11/27/19 18 11/27/2017 PSA, serum or plasm a PSA <0.04 NG/mL 0.0 - 4.0 Not Available [facility] [address] [facility] [address], [place], [address], 11/27/2017 15:59:50 02/15/20 18 02/14/2018 BMP, serum or plasm a glucose 100 mg/dL 74-100 normal Not Available [facility] [address] [place] [address], [address], 02/14/2018 20:44:12 02/15/20 18 02/14/2018 BMP, serum or plasm a blood urea nitrogen 16 mg/dL 6-20 normal Not Available [facility] [address] [place] [address], [address], 02/14/2018 20:44:12 02/15/20 18 02/14/2018 BMP, serum or plasm a creatinine 1.56 mg/dL 0.70-1 .25 high Not Available [facility] [address] [place] [address], [address], 02/14/2018 20:44:12 02/15/20 18 02/14/2018 BMP, serum or plasm a BUN/creatini ne ratio 10 (calc ) 10-20 normal Not Available [facility] [address] [place] [address], [address], 02/14/2018 20:44:12 02/15/20 18 02/14/2018 BMP, serum or plasm a sodium 140 mmol/ L 136-14 5 normal Not Available [facility] [address] [place] [address], [address], 02/14/2018 20:44:12 02/15/20 18 02/14/2018 BMP, serum or plasm a potassium 5.0 mmol/ L 3.4-5. 0 normal Not Available [facility] [address] [place] [address], [address], 02/14/2018 20:44:12 02/15/20 18 02/14/2018 BMP, serum or plasm a chloride 101 mmol/ L 98-107 normal Not Available [facility] [address] [place] [address], [address], 02/14/2018 20:44:12 02/15/20 18 02/14/2018 BMP, serum or plasm a carbon dioxide 24 mmol/ L 20-32 normal Not Available [facility] [address] [place] [address], [address], 02/14/2018 20:44:12 02/15/20 18 02/14/2018 BMP, serum or plasm a anion gap 15 (calc ) 7-25 normal Not Available [facility] [address] [place] [address], [address], 02/14/2018 20:44:12 02/15/20 18 02/14/2018 BMP, serum or plasm a calcium 9.4 mg/dL 8.6-10 .2 normal Not Available [facility] [address] [place] [address], [address], 02/14/2018 20:44:12 02/15/20 18 02/14/2018 BMP, serum or plasm a GFR 53 >= 60 abnormal Not Available [facility] [address] [place] [address], [address], 02/14/2018 20:44:12 02/15/20 18 02/14/2018 BMP, serum or plasm a GFR non- 46 >= 60 abnormal NOT E Calcu latio n for GFR is based on the Natio nal Kidne y Found ation CKD-E PI equat ion and allow s for repor ting GFR value s great er than 60 mL/mi n/1.7 3 m2. This calcu latio n has not been valid ated for patie nts less than 18 yrs., pregn ant women and Hispa nics. Chron ic kidne y disea se is defin ed as kidne y damag e or GFR less than 60 mL/mi n/1.7 3 m2 for 3 month s or longe r. . Not Available [facility] [address] [facility], [place], [address], 02/14/2018 20:44:12 02/15/20 18 02/14/2018 PSA, serum or plasm a PSA <0.04 NG/mL 0.0 - 4.0 Not Available [facility] [address], [place], [address], 02/14/2018 13:43:29 10/23/20 17 10/23/2017 XR, abdom en, 1 view No observ ation record ed. [email or web address] Not Available 2016 23:20:08 Result Notes None recorded. Problems Name Problem SNOMED Code Status Onset Date Resolution Date Notes Provider Name and Address Organization Details Recorded Time Kidney stone 61509863 Active 2016 Murbenedictniall Abelardo [facility] 7 14:21:53 Coronary arterioscleros is 05812959 Active Milly Barnard [facility] 8 14:54:01 Malignant neoplasm of prostate 212324971 Active Milly Barnard [facility] 8 14:54:01 Degeneration of lumbar intervertebral disc 97799453 Active Milly Barnard [facility] 8 14:54:01 Arthritis 9276889 Active Milly Barnard [facility] 8 14:54:01 History of coronary artery bypass grafting 899532463 Active Milly Barnard [facility] 8 14:54:01 Hyperlipidemia 33367218 Active Milly Barnard [facility] 8 14:54:01 [facility]ache 408990852 [facility] Gout 24885119 Active Milly Barnard [facility] 8 14:54:01 Hypothyroidism 63307166 Active Milly Barnard null, [facility] 8 14:54:01 Problem Notes None recorded. Procedures Surgical History Date Name Laterality Status Provider Name and Address Organization Details Recorded Time 017 EXTRA CORPOREAL SHOCKWAVE LITHOTRIPSY (SURG) completed JOBY OLIVEIRA MD [facility] [place], [address], [facility] 07/22/2017 16:57:09 017 Cystourethroscopy completed Murelene Abelardo [facility] 07/12/2017 14:11:42 PROSTATECTOMY, LAPAROSCOPIC, ROBOTIC (SURG) completed Colleen Cameron [facility] 01/29/2017 12:48:51 Imaging Results None recorded. Procedure Notes None recorded. Medical Equipment None Reported. Allergies No known drug allergies Medications Name Sig Start Date Stop Date Status Note LastModified by Organization Details LastModified Time promethazin e-DM 6.25 mg-15 mg/5 mL oral syrup active Not Available Not Available Not Available atorvastati n 80 mg tablet active Not Available Not Available Not Available nystatin 100,000 unit/mL oral suspension 10/23 completed Not Available Not Available Not Available clopidogrel 75 mg tablet 05/22 completed Not Available Not Available Not Available sulfamethox azole 800 mg-trimetho prim 160 mg tablet Take 1 tablet every 12 hours by oral route. active Not Available Not Available No t Available sildenafil 100 mg tablet active Not Available Not Available Not Available prednisone 10 mg tablets in a dose pack 05/22 completed Not Available Not Available Not Available levothyroxi ne 50 mcg tablet 05/22 completed Not Available Not Available Not Available hydrocodone 7.5 mg-acetamin ophen 325 mg tablet 10/23 completed Not Available Not Available Not Available erythromyci n 5 mg/gram (0.5 %) eye ointment 05/22 completed Not Available Not Available Not Available oseltamivir 75 mg capsule active Not Available Not Available Not Available indomethaci n 50 mg capsule active Not Available Not Available Not Available Synthroid 75 mcg tablet active Not Available Not Available Not Available aspirin 81 mg chewable tablet Chew 1 tablet every day by oral route. active Not Available Not Available No t Available metoprolol succinate ER 25 mg tablet,exte nded release 24 hr 05/22 completed Not Available Not Available Not Available levofloxaci n 500 mg tablet Take 1 tablet every 24 hours by oral route as directed for 5 days. active Not Available Not Available No t Available naproxen 500 mg tablet 10/23 completed Not Available Not Available Not Available Prepopik 10 mg-3.5 gram-12 gram oral powder packet 10/23 completed Not Available Not Available Not Available Vitals Date Recorded Body height Body mass index (BMI) Body weight Heart rate Systolic blood pressure Diastolic blood pressure Provider Name and Address Organization Details Last Updated DateTime 8 177.8 cm 28 kg/m2 05480.5 1 g 64 /min 141 mm[Hg] 89 mm[Hg] [facility] 8 15:58:18 Date Recorded Body height Body mass index (BMI) Body weight Heart rate Systolic blood pressure Diastolic blood pressure Provider Name and Address Organization Details Last Updated DateTime 8 177.8 cm 28 kg/m2 25586.5 1 g 74 /min 143 mm[Hg] 85 mm[Hg] [facility] 8 14:53:38 Date Recorded Body height Body mass index (BMI) Body weight Heart rate Systolic blood pressure Diastolic blood pressure Provider Name and Address Organization Details Last Updated DateTime 8 177.8 cm 28 kg/m2 30543.5 1 g 65 /min 122 mm[Hg] 77 mm[Hg] Martine Jon [facility] 8 13:42:55 Date Recorded Body height Body mass index (BMI) Body weight Heart rate Systolic blood pressure Diastolic blood pressure Provider Name and Address Organization Details Last Updated DateTime 7 177.8 cm 28 kg/m2 07460.5 1 g 78 /min 125 mm[Hg] 85 mm[Hg] Deseriee Greenup [facility] 7 15:53:55 Social History Question Answer Notes LastModified by Organizat ion Details LastModified Time Tobacco Smoking Status [facility]/2016 14:40:35 Marital Status Informati on not available 11/28/2016 What Was The Date Of Your Most Recent Tobacco Screening? 02/14/2018 Information n ot available 12/15/2019 Sex: Unknown Functional Status Question Answer Note LastModified by Organization D etails LastModified Time What is your level of alcohol consumption? None Information not available 11/28/2016 Mental Status None recorded. Family History Relationship Description Onset Age of this Age Resolved Age Notes LastModified by Organization Details LastModified Time Unspecified Relation Diabetes mellitus [email or web address] Not available 10/2016 14:40:05 Unspecified Relation Family history of malignant neoplasm [email or web address] Not available 10/2016 14:40:10 Medical History Condition Response Kidney Stones Y Heart Attack (OR) Y Arthritis Y High Cholesterol Y Thyroid Disorder Y Past Encounters Encounter ID Performer Location Encounter Start Date Encounter Closed Date Diagnosis/Indication Diagnosis SNOMED-CT Code Diagnosis ICD10 Code Diagnosis Note [id number] MD [facility] [address] [place] [id number] 11/28/2016 13:30:53 11/28/2016 16:26:10 Prostate specific antigen above reference range 380162072 R97.20 we did discuss risk of biopsy including bleeding and infection. We discussed that he will need to be on antibiotic s if we proceed with this. He will contact me for the results of his PSA which will be obtained in [place]. We were unable to draw a specimen here in the office today. [id number] JOBY OLIVEIRA MD SURGERY SCHEDULE [address] [place] [address] 12/26/2016 08:18:24 12/26/2016 08:19:43 Prostate specific antigen above reference range 942896182 R97.20 we did discuss risk of biopsy including bleeding and infection. We discussed that he will need to be on antibiotic s if we proceed with this. He will contact me for the results of his PSA which will be obtained in [place]. We were unable to draw a specimen here in the office today. [id number] MD [facility] [address] [place] [address] 01/02/2017 13:50:36 01/02/2017 17:13:21 Malignant neoplasm of prostate 226617708 C61 he will call with his decision regarding further treatment. [id number] JOBY OLIVEIRA MD [facility] [address] [place] [id number] 02/04/2017 12:55:05 02/05/2017 13:41:37 Malignant neoplasm of prostate 696834736 C61 follow-up 2 weeks with PSA [id number] JOBY OLIVEIRA MD [facility] [address] [address] 02/18/2017 13:55:35 02/18/2017 16:31:21 Malignant neoplasm of prostate 700138683 C61 follow-up 3 months with PSA Male urina ry stress incontinence 721314463 N39.3 [id number] JOBY OLIVEIRA MD [facility] [address] [place] [id number] 05/22/2017 12:56:13 05/23/2017 11:17:57 Carcinoma of prostate 516543884 C61 We will arrange forRadiati on oncology evaluation . Urethral stricture 55459 002 N35.9 We will arrange for cystoscopy with possible DVIU possible incision of bladder neck contractur e. Prostate s pecific antigen above reference range 259505091 R97.20 [id number] JOBY OLIVEIRA MD SURGERY SCHEDULE [address] [place] [address] 05/29/2017 06:49:38 05/29/2017 06:53:14 [id number] MARCELO POOLE MD [facility] [address] [address] 07/04/2017 12:42:30 07/04/2017 14:13:09 Ureteric stone 09844969 N20.1 Kidney stone 84003319 N2 0.0 History of malignant neoplasm of prostate 026451076 Z85.46 [id number] JOBY OLIVEIRA MD [facility] [address] [address] 07/12/2017 13:31:33 07/15/2017 08:48:25 Kidney stone 31939777 N20.0 Malignant neoplasm of prostate 530277434 C61 follow-up 3 months with PSA Renal fail ure syndrome 93611059 N19 [id number] JOBY OLIVEIRA MD [facility] [address] [place] [address] 08/05/2017 09:58:49 08/05/2017 12:28:38 Kidney stone 00601258 N20.0 follow-up 3 months with KUB Acute kidney injury 1466 9001 N17.9 await creatinine follow-up level Carcinoma of prostate 25 5675501 C61 his PSA one month ago was nondetecta ble. He will complete his radiation therapy and we'll see him back in 2 months [id number] JOBY OLIVEIRA MD [facility] [address] [place] [id number] 10/23/2017 14:56:45 10/24/2017 10:40:11 Urolithiasis 73592252 N20.9 Follow-up 3 months with KUB Malignant neoplasm of prostate 280805368 C61 follow-up 3 months with PSA [id number] JOBY OLIVEIRA MD [facility] [address] [place] [id number] 11/27/2017 15:11:33 11/27/2017 16:38:25 History of malignant neoplasm of prostate 834430658 Z85.46 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 21819937 N32.0 we will arrange for the above this week Urolithiasis 12269261 N2 0.9 Follow-up 2 months with KUB [id number] JOBY OLIVEIRA MD SURGERY SCHEDULE [address] [place] [address] 11/29/2017 09:00:11 11/29/2017 09:05:27 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 47863228 N32.0 we will arrange for the above this week [id number] JOBY OLIVEIRA MD [facility] [address] [place] [id number] 12/13/2017 14:23:04 12/16/2017 11:49:37 History of malignant neoplasm of prostate 693896596 Z85.46 Follow-up 3 months with PSA 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 50641774 N32.0 We will observe as discussed above [id number] JOBY OLIVEIRA MD [facility] [address] [place] [address] 02/14/2018 13:13:09 02/14/2018 13:55:56 Renal insufficiency 274087433 N28.9 we will follow-up with a PSA today History of malignant neoplasm of prostate 459877692 Z85.46 Follow-up 6 months with PSA Health Concerns Section Related Observation LastModified by Organization Detai ls LastModified Time None Recorded Concern Status LastModified by Organization Details LastModified Time None Recorded Advance Directives Directive None Recorded Payers Insurance Date Sequence Insurance Name Policy Number Policy Johnson Covered Member ID Johnson Member ID Guarantor Name 08/17/2018 1 [place] [id number] 1 Douglas Fernández [id number] Douglas Fernández Notes Date Note Type Note Provider Name and Address Organization Details Recorded Time 10/23/2017 text/html Patient is here for scheduled 3 month follow-up.At his last visit he is 3 weeks status post right-sided shockwave lithotripsy. KUB today shows 2 areas of 4 mm stone material. He has had no significant flank pain. He occasionally has a twinge of discomfort. He also had a robotic prostatectomy in December of this year and completed radiation therapy 2 weeks ago for positive Surgical Margin. He Has Had No Difficulties with Radiation Therapy. Considering the Size of the Stone Fragments I Suggest Obtaining Obturation. We Will See Him Back in 3 Months with KUB. We Will Also Obtain a PSA at That Time JOBY OLIVEIRA MD [address], [place], [address], [facility] 10/23/2017 23:09:47 11/27/2017 text/html he has previous history of robotic prostatectomyMar2016. He had extracapsular patient was last seen 1 month ago. At that time he was status post shockwave lithotripsy of right sided renal stones. He also had robotic prostatectomy in December of last year. He had extracapsular disease and completed radiation therapy in mid September 2017. PSA today is nondetectable. In May of last year he developed a bladder neck contracture with difficulty voiding. For the last 3 weeks he has had recurrence of slow urination. He is concerned that his obstruction has reoccurred. He has no incontinence. He has no dysuria. His urine specimen is unremarkable. I suggest we arrange for cystoscopy and probable incision of bladder neck contracture. JOBY OLIVEIRA MD [facility] [place], [address], [facility] 11/27/2017 16:22:49 12/13/2017 text/html Patient is here 1 week following cystoscopy and dilation of his bladder neck anastomosis. Later that evening he went into complete retention and had a catheter placed over the weekend. Today he has noticed no significant change. He is voiding although slow. He only has nocturia 1. He has no incontinence. He is status post robotic prostatectomy as well as external beam radiation therapy for extra prostate extension of disease. His most recent PSA was nondetectable. We discussed whether to proceed with more aggressive intervention and incision of bladder neck contracture. As he is having no incontinence I suggest observation and he agrees. He is here today with his daughter. JOBY OLIVEIRA MD [facility] [place], [address], [facility] 12/14/2017 11:39:36 02/14/2018 text/html patient is now 1 year following robotic prostatectomy. He also had radiation therapy postop positive surgical margin. His PSA today was nondetectable. He had an episode of urinary retention requiring bladder neck dilation and catheterization. He is voiding. Occasionally has a slight very small amount of urinary incontinence but typically is not an issue. He will follow up in 6 months with a PSA. JOBY OLIVEIRA MD [facility] [place], [address], [facility] 02/14/2018 14:19:52
--- OUTSIDE RECORDS SUMMARY | 2025-04-03 18:57 | XMS_ITS | Clinical Summary ---
Author Organization [facility] Address [address] [place] [address] Care Team Providers Care Hook Up Driver Name Role Phone Merritt Victor MD Primary Care Provider [phone] Allergies No known active allergies Medications allopurinol (Zyloprim) 300 MG tablet Take 1 tablet (300 mg) by mouth 1 (one) time each day. Active atorvastatin (Lipitor) 80 MG tablet Take 1 tablet (80 mg) by mouth every night. Active levothyroxine (Synthroid, Levoxyl) 75 MCG tablet Take 1 tablet (75 mcg) by mouth 1 (one) time each day before breakfast. Active ascorbic acid (vitamin C) 1000 MG tablet Take 1 tablet (1,000 mg) by mouth every other day. Every other day Active cholecalciferol (Vitamin D3) 25 MCG (1000 UT) tablet Take 1 tablet (1,000 Units) by mouth every other day. Every other day Active acetaminophen (Tylenol 8 Hour) 650 MG ER tablet Take 1 tablet (650 mg) by mouth 1 (one) time each day. Do not crush, chew, or split. Active aspirin 81 MG EC tablet Take 1 tablet (81 mg) by mouth every other day. Every other day Active Multiple Vitamins-Minera ls (COMPLETE MULTIVITAMIN/MS NERAL PO) Take 1 tablet by mouth 1 (one) time each day. Active acetaminophen (Tylenol) 500 MG tablet Take 2 tablets (1,000 mg) by mouth every 6 (six) hours if needed for pain. 20 tablet 10/01/2023 Active Active Problems Problem Noted Date Diagnosed Date [...] normal. EF 60%. d. 09/06/2021: LHC at [facility], patent SVG-OM, SVG- PDA, and OWENS-LAD. Occluded RCA, distal left main 80% heavily calcified. LVEDP 16, lvef 60-65% HLD (hyperlipidemia) 04/19/2016 Overview (09/20/2023): On statin therapy HTN (hypertension) 04/19/2016 Resolved Problems Problem Noted Date Diagnosed Date Resolved Date Acute kidney injury superimposed on CKD 09/20/2023 09/22/2023 Social History Tobacco Use Types Packs/Day Years Used Date Smoking Tobacco: Never Smokeless Tobacco: Never Tobacco Cessation:Counseling Given: Not Answered Alcohol Use Standard Drinks/Week Comments Never 0 (1 standard drink = 0.6 oz pur e alcohol) CAGE ASSESSMENT Answer Date Recorded Cage unable to access Not on file 09/20/2023 Cage max number of drinks Not on file 2022 Cage Beverages a week Not on file 09/20/2023 Have you ever felt you should CUT down on your d rinking? 0 09/20/2023 Have you been ANNOYED by people criticizing your drinking? 0 09/20/2023 Have you felt GUILTY about your drinking? 0 09/20/2023 Have you had a drink first t berta in the morning (EYE-INDUSTRIAL CHEMIST) to steady your nerves or to get rid of a hangover? 0 09/20/2023 CAGE Questionnaire Score 0 023 Sex and Gender Information Value Date Recorded Sex Assigned at Not on file Legal Sex Male 8:49 PM EDT Gender Identity Not on file Sexual Orientation Not on file Last Filed Vital Signs Vital Sign Reading Time Taken Comments Blood Pressure 113/76 10/01/2023 1:45 PM EST Pulse 71 10/01/2023 1:45 PM EST Temperature 36.3 C (97.4 F) 10/01/2023 1:27 PM EST Respiratory Rate 14 10/01/2023 1:45 PM EST Oxygen Saturation 100% 10/01/2023 1:45 PM EST Inhaled Oxygen Concentration - - Weight 81.6 kg (180 lb) 10/01/2023 9:39 AM EST Height 177.8 cm (5' 10 ) 10/01/2023 9:39 AM EST Body Mass Index 25.83 10/01/2023 9:39 AM EST Plan of Treatment Health Maintenance Due Date Last Done Comments [facility]-Depression Screening 1955 [facility]-Medicare Annual Wellness (AWV) 1955 [facility]-/Child/Adol SDOH Screenings 1955 [facility]- SDOH Screenings 1971 [facility]-Adult SDOH Screenings 1971 [facility]-DTaP,Tdap,and Td Vaccine s (1 - Tdap) 1972 [facility]-Pneumococcal Vaccine: 50 + Years (1 of 2 - PCV) 1972 [facility]-Zoster Vaccines (1 of 2) 1972 CT Colonography 1998 Colonoscopy 1998 FIT-DNA 1998 FIT 1998 FOBT 1998 Sigmoidoscopy 1998 [facility]-Colorectal Cancer Screening 1998 [facility]-RSV Vaccine: 60+ Years o r (1 - Risk 60-74 years 1-dose series) 2013 [id number]-41 Vaccine ( - season) 2024 10/04/2021, 03/29/2021, 03/01/2021 [facility]-Influenza Vaccine (Seaso n Ended) 2025 [facility]-Hepatitis C Screening Completed 09/19/2023 [facility]-Obesity Intervention Completed 09/19/2023 HPV Vaccines Aged Out No longer eligi ble based on patient's age to complete this topic [facility]-HIB Vaccines Aged Out No longer e ligible based on patient's age to complete this topic [facility]-Hepatitis A Vaccines Aged Out No longer eligible based on patient's age to complete this topic [facility]-IPV Vaccines Aged Out No longer e ligible based on patient's age to complete this topic [facility]-Rotavirus Vaccines Aged Out No lo nger eligible based on patient's age to complete this topic Medical Devices Implanted Type Area Reed Dipper Device Identifier Shelf Expiration Date Model / Serial / Lot Stent Ureteral Double Pigtail Pos 6fr 24cm - Sn/A - [id number] Implanted:Qty: 1 on 09/21/2023 by Sarmad Tracy MD at [facility] Stent Left: [id number] 06/05/2025 [id number] / N/A / [id number] Stent Ureteral Double Pigtail Pos 5fr 26cm - [id number] Implanted:Qty: 1 on 10/01/2023 by Colton Witt MD at [facility] Left: [id number] 05/23/2025 [id number] / / [id number] Procedures Procedure Name Priority Date/Time Associated Diagnosis Comments HEPATITIS C ANTIBODY - ED W/REFLEX TO HCV QUANT PCR STAT 09/19/2023 11:24 PM EST from Last 3 Months or Most Recently Relevant to Health Maintenance Results * Hepatitis C Antibody - ED (09/19/2023 11:24 PM EST) Hepatitis C Antibody Negative Negative 09/20/2023 12:06 AM EST [facility] Blood Venous blood specimen / Unknown Venipuncture / Unknown 09/19/2023 11:24 PM EST 09/19/2023 11:34 PM EST us Alice RODRIGUEZ LAB BLOOD ORDERABLES Final R esult [facility] [address] [place] [address] from Last 3 Months or Most Recently Relevant to Health Maintenance Insurance [employer] Advance Directives * Full Code (Latest Code Status on File) Date Activated Date Inactivated Comments 09/20/2023 1:19 AM 09/22/2023 3:34 PM Question Answer Comments Patient has decision-making capacity? Yes Care Teams Hook Up Driver Relationship Specialty Start Date End Date Merritt Victor MD [address] [place] [address] [address] [place] [address] PCP - General 09/19/23
--- OUTSIDE RECORDS SUMMARY | 2025-04-03 18:57 | XMS_ITS | Data Portability ---
Author Organization [facility] CHRISTIAN Gunn ADMIN Address [address] [place] [id number] Assessment No assessment recorded. Plan of Treatment Reminders Order Date Submit Date Provider Last Modified By Organization Details Last Modified Time Details Appointments None recorded . Lab None recorded . Referral None recorded . Procedures None recorded . Surgeries None recorded . Imaging None recorded . Medication Orders Trimix 023 09/04/20 [facility], [address] [facility] [address], [place], [place], [id number], 3 13:09:21 Trimix 022 09/24/20 [id number], [address] [facility] [address] [place], [id number], 2 13:09:29 Patient TargetsNo targets recorded. Patient InstructionsNo instructions recorded. Reason for Referral None Reported. Results Created Date Observation Date Name Description Value Unit Range Abnormal Flag Note LastModifiedBy Organization Detail LastModifiedTime 10/10/20 23 10/10/2023 CT, abdom en + pelvi s, w/o contr ast No observ ation record ed. [email or web address] [facility] (Med Record) [address], [place], [address], 10/15/2023 06:53:36 Result Notes None recorded. Problems Name Problem SNOMED Code Status Onset Date Resolution Date Notes Provider Name and Address Organization Details Recorded Time Myocardial infarction 90221177 Active [facility] Velia 2 11:45:02 Thyroiditis 74323964 Active LILLIE Levine [facility] [place] [facility] [place] 11:45:17 Kidney stone 05145299 Active LILLIE Levine [facility] [place] [facility] [place] 11:45:29 Problem Notes None recorded. Procedures Surgical History Date Name Laterality Status Provider Name and Address Organization Details Recorded Time 3 Cystoscopy-Male completed Edmund Hemphill Jr, MD [address] [place] [address], [address], [place], [address], LILLIE Sampson [facility] [place] 10/23/2023 15:32:32 coronary artery bypass with autogenous graft, three grafts completed Carolyn GONZALES [facility] & [place] 09/24/2022 11:46:50 Prostate Surgery completed Carolyn GONZALES [facility] & [place] 09/24/2022 11:46:57 Imaging Results None recorded. Procedure Notes None recorded. Medical Equipment None Reported. Allergies No known drug allergies Medications Name Sig Start Date Stop Date Status Note LastModified by Organization Details LastModified Time Trimix 25 u prn 2022 active Not Available Not Available Not Avai lable Trimix 30 units prn 2021 active Not Available Not Available Not Avai lable Trimix 30 units prn 2021 active Not Available Not Available Not Avai lable amoxicillin 500 mg capsule TAKE 1 CAPSULE BY MOUTH TWICE A DAY FOR 10 DAYS active Not Available Not Available No t Available metformin 500 mg tablet TAKE 1 TABLET BY MOUTH ONCE DAILY WITH A MEAL active Not Available Not Available No t Available atorvastatin 80 mg tablet TAKE 1 TABLET BY MOUTH EVERY DAY AT BEDTIME active Not Available Not Available No t Available levothyroxine 75 mcg tablet TAKE 1 TABLET BY MOUTH EVERY DAY active Not Available Not Available No t Available tamsulosin 0.4 mg capsule active Not Available Not Available N ot Available nitroglycerin 0.4 mg sublingual tablet active Not Available Not Available Not Available allopurinol 300 mg tablet TAKE 1 TABLET BY MOUTH EVERY DAY active Not Available Not Available No t Available ibuprofen 600 mg tablet active Not Available Not Available No t Available aspirin active Not Available Not Avail able Not Available Vitals Date Recorded Body height Body mass index (BMI) Body weight Provider Name and Address Organization Details Last Updated DateTime 09/04/2023 177.8 cm 24.4 kg/m2 36408.7 g Prema Veronica [facility] [place] 09/04/2023 10:48:57 Date Recorded Body height Body mass index (BMI) Body weight Body temperature Provider Name and Address Organization Details Last Updated DateTime 09/24/2022 177.8 cm 26.5 kg/m2 61393.59 g 98.1 [degF] Carolyn Chatterjee [facility] [place] 09/24/2022 11:39:41 Date Recorded Body height Body mass index (BMI) Body weight Body temperature Provider Name and Address Organization Details Last Updated DateTime 10/09/2023 177.8 cm 24.4 kg/m2 14919.7 g 97.9 [degF] Carolny Chatterjee [facility] [place] 10/09/2023 08:55:48 Date Recorded Body height Body mass index (BMI) Body weight Body temperature Provider Name and Address Organization Details Last Updated DateTime 10/11/2023 177.8 cm 24.4 kg/m2 74328.7 g 98 [degF] Apoorva Garcia [facility] [place] 10/11/2023 09:12:39 Social History None recorded. Functional Status Question Answer Note LastModified by Organizat ion Details LastModified Time Do you or have you ever used any other forms of tobacco or nicotine? Yes [email or web address] Information not available 09/24/2022 What is your level of alcohol consumption? None [email or web address] Information not available 09/24/2022 Do you or have you ever used smokeless tobacco? Currently chews tobacco Information not available 09/24/2022 Mental Status None recorded. Family History Relationship Description Onset Age of this Age Resolved Age Notes LastModified by Organization Details LastModified Time Mother Malignant neoplastic disease dec [email or web address] Not available 2021 11:45:55 Sister Malignant neoplastic disease dec [email or web address] Not available 2021 11:45:55 Father Acute stroke dec [email or web address] Not sincere wallace 09/24/2022 11:46:09 Medical History No medical history recorded. Past Encounters Encounter ID Performer Location Encounter Start Date Encounter Closed Date Diagnosis/Indication Diagnosis SNOMED-CT Code Diagnosis ICD10 Code Diagnosis Note [id number] Edmund Hemphill Jr, MD [facility] [address] [place] [address] 09/24/2022 11:10:54 09/24/2022 12:06:28 History of malignant neoplasm of prostate 054380210 Z85.46 patient with history of prostate cancer status post radical prostatect terrence [address] Wiseman. Patient's PSA has remained 0 postoperat ively and his most recent 1 last month continues at 0. Erectile d ysfunction following radical prostatectomy 4366669557 79401 N52.31 patient with erectile dysfunctio n radical prostatect terrence. He continues TriMix and uses 30-40 units good results. Meds refilled today. [id number] Edmund Hemphill Jr, MD [facility] [address] [address] 09/04/2023 10:21:47 09/04/2023 11:24:57 Erectile dysfunction 976801559 F52.21 Patient with history of erectile dysfunctio n after radical prostatect terrence. He is using up to 50 units of TriMix now he is inquiring as to whether there may be a stronger formula so that he does not have to use as much. We will increase his TriMix. Carcinoma of prostate 25 0838603 C61 patient with history Of prostate cancer status post radical prostatect terrence 2016. His PSAs have been 0 since that time. [id number] Edmund Hemphill Jr, MD [facility] [address] [address] 10/09/2023 08:48:37 10/09/2023 10:57:51 Postoperative retention of urine 905260823 R33.8 patient with recent urinary retention after ureterosco pic stone removal. Voiding trial was performed today and patient able to void 100 cc of 200 cc instilled into his bladder. He was discharged home and was taught how to catheteriz e himself if needed. Carcinoma of prostate 25 8380875 C61 patient with history Of prostate cancer status post radical prostatect terrence 2016. His PSAs have been 0 since that time. Ureteric stone 25150260 N20.1 patient is status post stent placement and later ureterosco py stone extraction at the [facility]. Erectile dysfunction 860 868066 F52.21 Patient with history of erectile dysfunctio n after radical prostatect terrence. He is using up to 50 units of TriMix now he is inquiring as to whether there may be a stronger formula so that he does not have to use as much. his TriMix was increased at his last visit but he is not had an opportunit y to use it yet. [id number] Edmund Hemphill Jr, MD [facility] [address] [address] 10/11/2023 09:08:48 10/11/2023 10:03:01 Retention of urine 615439246 R33.9 patient with recent urinary retention. Zamora catheter was removed today and cystoscopy was performed. There was no evidence of significan t stricture. His prostate is absent. We discussed that he should be able to void without difficulty . He was reassured that the small 2 mm stone noted on the CT scan would not cause him any difficulty in voiding. Patient was able to void 200 cc of the 250 cc placed into his bladder. Carcinoma of prostate 25 2340615 C61 patient with history Of prostate cancer status post radical prostatect terrence 2017. His PSAs have been 0 since that time. Erectile dysfunction 860 240944 F52.21 Patient with history of erectile dysfunctio n after radical prostatect terrence. He is using up to 50 units of TriMix now he is inquiring as to whether there may be a stronger formula so that he does not have to use as much. his TriMix was increased at his last visit but he is not had an opportunit y to use it yet. Health Concerns Section Related Observation LastModified by Organization Detai ls LastModified Time None Recorded Concern Status LastModified by Organization Details LastModified Time None Recorded Advance Directives Directive None Recorded Payers Insurance Date Sequence Insurance Name Policy Number Policy Johnson Covered Member ID Johnson Member ID Guarantor Name 10/09/2023 1 [place]MEDICARE REPLACEMENT HMO) [id number] Douglas Fernández [id number] Douglas Fernández 10/09/2023 1 [employer] (PPO) Douglas Fernández [id number] Douglas Fernández 11/20/2024 1 [employer] (MEDICARE REPLACEMENT/AD VANTAGE - PPO) Douglas Fernández [id number] Douglas Fernández 12/21/2024 1 [place] [id number] Douglas Fernández [id number] Douglas Fernández Notes Date Note Type Note Provider Name and Address Organization Details Recorded Time 2 text/html Patient is a 67-year-old white male with a history of Prostate cancer anderectile dysfunction. I previously saw patient at [facility]. his prostate was removed [place] [address] Wiseman. His PSA has remained 0 his most recent PSA continues at 0 on August 21, 2022. Patient has had some postoperative erectile dysfunction which was refractory to oral medications. He has been on TriMix for couple of years and states he uses 30-40 units p.r.n. with good results. Edmund Hemphill Jr, MD [address] [place] [address], [address], [place], [address], [place] [facility] 09/24/2022 13:09:22 3 text/html Patient is a 68-year-old white male a history of prostate cancer and erectile dysfunction. Patient has his prostate removed in [address] Wiseman. His PSA has remained0 since treatment. Denies any postoperative urinary incontinence. He does have some postoperative erectile dysfunction for which he takes up to 50 units of TriMix. Edmund Hemphill Jr, MD [address] [place] [address], [address], [place], [address], [place] [facility] 09/04/2023 15:23:14 3 text/html Patient is a 68-year-old white male with a history of prostate cancer status post recent ureteral stone extraction at the [facility] with resulting urinary retention. Patient states that he experienced left renal colic prior to in his CT scan showed a 7 mm proximal left ureteral stone. He went to the [facility] for stent placement on and then had ureteroscopy and stone extraction following week. Stent was placed postoperatively and was removed on October 01. Patient states after it was removed that he had some decreased force of stream and dribbling and then episode of urinary retention on October 08. He went to the emergency room at [facility] at that time and catheter placed with a 500 cc residual. Catheter was left in and he follows up with me today.Patient with history of prostate cancer status post a robotic prostatectomy in [address] Wiseman. Reportedly he had some urethral narrowing and had to have dilation 2 times in the past. Edmund Hemphill Jr, MD [address] [facility], [address], [place], [address], [place] [facility] [place] 10/09/2023 14:22:17 3 text/html Patient is a 68-year-old white male with a history of prostate cancer status post recent ureteral stone extraction at the [facility] with resulting urinary retention. Patient states that he experienced left renal colic prior to in his CT scan showed a 7 mm proximal left ureteral stone. He went to the [facility] for stent placement on and then had ureteroscopy and stone extraction following week. Stent was placed postoperatively and was removed on October 01. Patient states after it was removed that he had some decreased force of stream and dribbling and then episode of urinary retention on October 08. He went to the emergency room at [facility] at that time and catheter placed with a 500 cc residual. Catheter was left in and he Followed up with me 2 days ago and a voiding trial performed. He was able to void 100 cc of the 200 cc instilled into his bladder. He went home and states that he voided couple of times at went back into the emergency room last night where a Zamora catheter was replaced. A CT scan was also performed showing mild bilateral hydroureteronephrosis and several moderate-sized calyceal stones in the right kidney. Single tiny calyceal stone noted in left kidney. There were stable left renal cortical cyst and a 2 mm stone noted in the area of the internal urethral sphincter. Patient discharged home with his Zamora catheter. Edmund Hemphill Jr, MD [address], [address], [place], [address], [place] [facility] [place] 10/23/2023 15:34:55
--- NOTE | 2025-04-03 19:02 | PC.NURSE ---
rivas juarez to bedside to assess patient. bladder scan performed 148mL on scan
[2025-04-03 19:03] VITALS: BP 141/84; PULSE 75; RESP 18; TEMP 37.1; O2SAT 96; BMI 25.4
--- NOTE | 2025-04-03 19:19 | PC.NURSE ---
Assumed care of patient.
--- NOTE | 2025-04-03 19:34 | CT_ITS ---
PROCEDURE INFORMATION: Exam: CT Abdomen And Pelvis Without Contrast Exam date and time: 04/03/2025 9:23 PM Age: 69 years old Clinical indication: Other: Painless hematuria, h/o prostate CA, stones TECHNIQUE: Imaging protocol: Computed tomography of the abdomen and pelvis without contrast. Radiation optimization: All CT scans at this facility use at least one of these dose optimization techniques: automated exposure control; mA and/or kV adjustment per patient size (includes targeted exams where dose is matched to clinical indication); or iterative reconstruction. COMPARISON: CT ABDOMEN PELVIS WO CON 10/10/2023 1:09 AM FINDINGS: Lungs: Evidence for calcified lung granuloma in the right chest. Linear density identified within bilateral lower lungs. Coronary arteries: Coronary arterial calcifications are demonstrated. Liver: Liver appears heterogeneous with irregular border. Possible hepatic parenchymal disease. Hepatic calcification noted, compatible with old granulomatous disease. Gallbladder and biliary ducts: Unremarkable. No calcified stones. No ductal dilation. Pancreas: Unremarkable. Spleen: Incidental calcifications noted within the spleen, compatible with old granulomatous disease. Adrenal glands: Normal. No mass. Kidneys and ureters: The kidneys appear heterogeneous with irregular lobulated contours and areas of cortical thinning. Findings suggesting chronic renal parenchymal disease. Bilateral nephrolithiasis is demonstrated. Larger calculi on the right side measure up to 7 mm. No visualized renal hydronephrosis. Stomach and bowel: Possible mild increased volume of colonic fecal material identified throughout the colon. Generalized colonic diverticulosis is demonstrated. Appendix: The visualized appendix appears unremarkable. Intraperitoneal space: No free air. No significant fluid collection. Vasculature: [id number] diffuse atherosclerotic arterial vascular wall calcifications are demonstrated. Lymph nodes: No enlarged lymph nodes. Urinary bladder: Bladder calculi are demonstrated. Bladder calculi measurement: Posterior midline bladder calculus measures 4 mm on axial image 110. This calculus appears new since September 2023. Stable punctate 2 mm calculus in the lower bladder. This calculus is stable since September 2023. Reproductive: Unremarkable as visualized. Bones/joints: Moderate to severe bony degenerative changes involving the lumbar spine region. Disc and osteophyte complexes with moderate to severe central canal and foraminal narrowing within the lumbar spine. Soft tissues: Unremarkable. IMPRESSION: 1. Linear bilateral lower chest pulmonary atelectasis, or scarring. 2. Nonspecific heterogeneous and irregular appearance of the liver. Recommend correlation with liver function tests. 3. Potential chronic renal parenchymal disease. Consider correlation with renal function tests. 4. Bilateral nonobstructing nephrolithiasis. 5. Bladder calculi, as described above. New bladder calculus since September 2023. Possible recently passed calculus. 6. Possible mild constipation. 7. Colonic diverticulosis. 8. Chronic findings.
--- NOTE | 2025-04-03 19:48 | HMH.EDGENADL ---
Discharge Plan Disposition Patient Disposition: Home, Self-Care Prescriptions Prescriptions: New sulfamethoxazole-trimethoprim [Bactrim DS] 800-160 mg tablet 1 tab PO BID 10 Days Qty: 20 0RF No Action atorvastatin 80 mg tablet 80 mg PO DAILY levothyroxine 75 mcg capsule 75 mcg PO DAILY cetirizine [Allergy Relief (cetirizine)] 10 mg tablet 10 mg PO DAILY aspirin [Adult Low Dose Aspirin] 81 mg tablet,delayed release (DR/EC) 81 mg PO DAILY apple cider vinegar 600 mg capsule 600 mg PO DAILY allopurinol 100 mg tablet 100 mg PO DAILY Complete Multivitamin tablet 1 tab PO DAILY Referrals Follow up/Referrals: Valentin Bocanegra MD [Primary Care Provider, Internal Medicine] - See instructions Activity Restrictions/Add. Instructions Additional Instructions/Restrictions: You have evidence of intrarenal stones and painless hematuria it is possible that the stones that are on in your collecting system are the cause of your hematuria. Additionally your urinalysis did not clearly demonstrate any type of infection but had some bacteria within it therefore a course of antibiotics is warranted. He had some mild urinary retention but were able to urinate in the emergency department therefore a straight Zamora catheter/In-N-Out catheter was provided for you since you know how to use this at home in case you are symptomatic. Please return to the emergency department and otherwise follow-up with Dr. Hemphill for further evaluation and management. As discussed painless hematuria needs further malignancy workup no evidence of that on CT scan today. Clinical Impressions Clinical Impression: Acute urinary retention, Painless hematuria, Kidney calculus Instructions Patient Instructions: DI for Urinary Tract Infection (UTI), DI for Urinary Tract Infection in Children Print Language Print Language: Slovak Discharge ED Provider: Alva Collado General Adult HPI General Chief complaint: Urogenital-Male Stated complaint: Unable to Urinate Time Seen by Provider: 04/03/25 18:57 Mode of Arrival: Ambulatory Source of Information: Patient Description of Symptoms (Recalled from ER Triage Doc. by RN): PT states 5 days ago he had hematuria that lasted for one day. After the blood has stopped he claims that for 4 days it feels as if something ,ay be blocking him from urinating . PT stated he will dribble for 10 minutes but doesnt feel as if he is finished. PT does not have a prostate, removed r/t cancer has not had a reoccurrence to his knowledge. Bladder scan completed at bed side with 148 mL on scan. Pt has a hx to kidney stones with the last one noted on 2022. PT denies pain/burning with urination. History of Present Illness HPI narrative: Patient is a 69-year-old male presenting today with difficulty urinating. Has an extensive urologic history. Had a radical prostatectomy in the mid performed by Dr. Joby Wiseman. Has been followed by Dr. Hemphill since that time. Also has had kidney stones that required stent and lithotripsy. He has had several cystoscopies over the last several years most recently in 2022 without any significant abnormalities. He is not on any blood thinners. However a few days ago in the middle of the last week he began having gross hematuria that was painless. This has come and gone most recently he had hematuria yesterday morning but since has felt little bit of pressure and as if something is stuck in his bladder. Has been able to completely empty his bladder and is only having dribbling urination at this point. Denies any other symptoms. Related Data Home Medications ?Medication ?Instructions ?Recorded ?Confirmed apple cider vinegar 600 mg capsule 600 mg PO DAILY 09/16/18 10/08/23 aspirin 81 mg tablet,delayed 81 mg PO DAILY 09/16/18 10/08/23 release (Adult Low Dose Aspirin) atorvastatin 80 mg tablet 80 mg PO DAILY 09/16/18 10/08/23 cetirizine 10 mg tablet (Allergy 10 mg PO DAILY 09/16/18 10/08/23 Relief (cetirizine)) levothyroxine 75 mcg capsule 75 mcg PO DAILY 09/16/18 10/08/23 allopurinol 100 mg tablet 100 mg PO DAILY 12/16/18 10/08/23 multivitamin,[id number] 1 tab PO DAILY 12/16/18 10/08/23 (Complete Multivitamin tablet) Previous Rx's ?Medication ?Instructions ?Recorded sulfamethoxazole 800 1 tab PO BID 10 days #20 tabs 04/03/ mg-trimethoprim 160 mg tablet (Bactrim DS) Allergies Allergy/AdvReac Type Severity Reaction Status Date / Time No Known Allergies Allergy Unverified 03/24/21 14:37 [facility] Disclaimer: The information contained in this section may have been updated after the patient was seen, as this information can be updated by other users. Social History Smoking Status: Never smoker alcohol intake: never substance use type: denies use current occupational status: employed and retired Travel in the last 8 weeks?: None household members: spouse housing: house Have you lived/traveled outside [place] in past 30 days?: No Contact w/someone who lives/traveled outside [place] past 30 days?: No Exposure to someone with infectious disease in past 14 days?: No Do you have a fever (greater than 100.4 F or 38 C)?: No Have you tested positive for COVID-19?: No Exposed to someone with COVID-19 in past 14 days?: No Do you have a sore throat?: No Do you have a cough?: No Do you have any weakness?: No Do you have any diarrhea?: No Are you experiencing any unusual bleeding?: No Do you have any muscle aches/pain?: No Do you have any abdominal pain?: No Are you experiencing loss of taste or smell?: No Other Medical History Have you received the Pneumonia Vaccine: Yes ROS Obtained: Yes All systems reviewed & no additional complaints except as documented Physical Exam General General appearance: alert and in no apparent distress Respiratory Respiratory exam: Present normal lung sounds bilaterally Cardiovascular Cardiovascular exam: Present regular rate Abdominal Exam Abdominal exam: Present soft; Absent distention or tenderness Neurological Exam Neurological exam: Present alert and oriented X3 Medical Decision Making Medical Records Screening: Per USPSTF and CDC recommendations, given the prevalence of disease in our region, it is our hospital?s policy to screen for HIV and viral Hepatitis for all patients aged 18 and over and those with ongoing risk factors. Renzo Inquiry Pt receiving controlled substance: No Vital Signs: 04/03/25 19:03 Temperature 98.8 F Temperature Source Oral Pulse Rate [Right] 75 Respiratory Rate 18 Blood Pressure [Right Arm] 141/84 H Blood Pressure Mean [Right Arm] 103 02 Sat by Pulse Oximetry 96 Oxygen Delivery Method Room Air Lab Data Lab results reviewed: Yes I reviewed the patient's lab results. Lab Results 04/03/25 19:57: Urine Color Yellow, Urine Appearance Slightly cloudy, Urine pH 6.0, Ur Specific [place] 1.015, Urine Protein Negative, Urine Glucose (UA) 3+, Urine Ketones Negative, Urine Blood 1+ A, Urine Nitrate Negative, Urine Bilirubin Negative, Urine Urobilinogen 0.2, Ur Leukocyte Esterase Negative, Urine RBC 50-100, Urine WBC 20-50, Ur Squamous Epith Cells 3-5, Urine Bacteria Trace 04/03/25 20:45: WBC 5.2, RBC 4.67, Hgb 15.7, Hct 45.7, MCV 97.9 H, MCH 33.6 H, MCHC 34.4, RDW 13.2, Plt Count 112 L, MPV 10.7 H, Neut % (Auto) 75.2, Lymph % (Auto) 15.1, Wolfe % (Auto) 7.4, Eos % (Auto) 1.7, Baso % (Auto) 0.4, Neut # (Auto) 3.9, Lymph # (Auto) 0.8, Wolfe # (Auto) 0.4, Eos # (Auto) 0.1, Baso # (Auto) 0.0, PT 10.7, INR 0.96, APTT 24.9, Sodium 138, Potassium 4.8, Chloride 106, Carbon Dioxide 28, Anion Gap 8.8, BUN 26 H, Creatinine 1.30 H, Estimated Creat Clear 61, Estimated GFR 54 L, Est GFR ( Amer) 66, Glucose 233 H, Calcium 9.4, Total Bilirubin 0.7, AST 33, ALT 31, Alkaline Phosphatase 112, Total Protein 6.9, Albumin 4.5, Globulin 2.4, Albumin/Globulin Ratio 1.9 H 04/03/25 20:45 04/03/25 20:45 Orders (Tests/Meds): ED MEDICATIONS Discontinued Medications Generic Name Dose Route Start Last Admin Trade Name Raghuq PRN Reason Stop Dose Admin Lactated Ringer's 1,000 mls @ 999 mls/hr 04/03/25 19:45 04/03/25 19:54 Lactated Ringer's 1000 Ml Bag IV 04/03/25 20:45 999 mls/hr .Q1H1M JOSE GUADALUPE Administration Iopamidol 75 ml 04/03/25 21:22 04/03/25 21:56 Iopamidol-370 (76%);100ml Bottle IV 04/03/25 21:23 Not Given ONCE ONE Sodium Chloride 10 ml 04/03/25 21:22 04/03/25 21:55 Sodium Chloride 0.9% 10ml Syr (Rad Only) IV 04/03/25 21:23 Not Given ONCE ONE ORDERS Category Date Time Status CT abdomen pelvis wo con Stat Cat Scan 04/03/25 19:34 Taken POCUS Point of Care (ER Only) Stat Exams 04/03/25 19:06 Taken CBC w/Auto Diff [Complete Blood Count Auto Diff] Stat Lab 04/03/25 20:45 Completed CMP [Comprehensive Metabolic Panel] Stat Lab 04/03/25 20:45 Completed PT/PTT Stat Lab 04/03/25 20:45 Completed UA [Urinalysis and Microscopic] Stat Lab 04/03/25 19:57 Completed Urine Culture Stat Micro 04/03/25 19:57 Received Medical Decision Narrative: 69-year-old with above history and physical. Presenting today with painless hematuria and difficulty with urination. Given his extensive history including malignancy and the stones we will get a contrasted study to look further into any inflammatory process malignancy stone etc. Additional obtain urinalysis and basic blood work. Will anchor a Zamora given the fact that he is having difficulty urinating. He has an established relationship with Dr. Hemphill can keep his Zamora anchored and follow-up for a voiding trial within 1 week. Will reassess after this initial workup is complete. 10 PM patient was unable to get a contrasted study because his IV blew however noncontrasted CT scan was performed I personally interpreted was able to get the information that needed. No obvious mass from a genitourinary standpoint. There is some stranding around the kidneys and some intrarenal stones on the right which could be the cause of his hematuria they are not in the collecting system itself. Patient still has some urine in his bladder but he has been able to urinate in the emergency department. He has used a straight cath at home and actually asked for us to send him home with 1 which I think is reasonable if he gets symptomatic. Therefore Zamora catheter was not placed at the moment. Patient does not have clear evidence of urinalysis that shows urinary tract infection however he does have some bacteria some white therefore we will attempt to treat with antibiotics to see if this includes his symptoms as well. Overall patient still needs to follow-up with urology to have further malignancy evaluation and following him to resolution of symptoms. Procedures Miscellaneous Procedure Procedure Performed: Limited renal ultrasound Indication: A focused ultrasound of the kidneys was performed to evaluate for hydronephrosis and nephrolithiasis. The ultrasound was performed with the following indications, as noted in the H&P: Hematuria Identified structures: [-R kidney - L kidney - Both kidneys] [-Bladder] Findings: No obvious evidence of bilateral hydronephrosis or obvious stone bladder contour appeared normal there were a few 100 cc of anechoic fluid in the bladder no obvious malignancy noted in the kidneys or the bladder Impression: Unremarkable limited ultrasound of the kidneys and bladder Images were saved to permanent archive The study was technically adequate CPT: 25365-36 This study was performed by me, and I personally interpreted all images/videos. Based on my clinical judgement, these images were adequate and did not necessitate further imaging. Critical Care Critical Care Time Critical Care Time: No
[2025-04-03] MEDS: LACTATED RINGERS 1000ML 1,000 ML 999 ML IV (19:54)
[2025-04-03 20:01] LABS: Microscopic, Urine URINE MICROSCOPIC (MICROSCOPIC)
[2025-04-03 20:02] LABS: Bilirubin,Urine Negative (Negative); Blood, Urine 1+ (Negative); Color,Urine YELLOW (Yellow); Glucose,Urine (UA) 3+ (Negative); Ketones,Urine Negative (Negative); Leukocyte Esterase,Urine Negative (Negative); Nitrate,Urine Negative (Negative); Protein,Urine Negative (Negative); Specific Gravity, Urine 1.015 (1.005-1.030); Urobilinogen,Urine 0.2 EU/dl (0.2)
--- NOTE | 2025-04-03 20:08 | PC.NURSE ---
pt wishing to wait for CT results prior to sarkar placement.
[2025-04-03 20:09] LABS: Appearance,Urine Slightly Cloudy (Clear)
[2025-04-03 20:10] LABS: Bacteria,Urine Trace /lpf; RBC,Urine 50-100 #/hpf (0-3); WBC,Urine 20-50 #/hpf (0-3)
[2025-04-03 20:56] LABS: Basophils % 0.4 % (0.1-2.0); Eosinophils # 0.1 Kmm3 (0.0-0.4); Eosinophils % 1.7 % (0.1-12.0); Hematocrit 45.7 % (42.0-52.0); Hemoglobin 15.7 g/dL (14.1-18.0); Immature Granulocytes # 0.01 10^3uL; Immature Granulocytes % 0.2 %; Lymphocytes # 0.8 K/mm3 (0.7-4.5); Lymphocytes % 15.1 % (10-50); Mean Corpuscular HGB Conc 34.4 g/dL (31.8-35.4); Mean Corpuscular Hemoglobin 33.6 pg (27.0-31.2); Mean Corpuscular Volume 97.9 fl (80-94); Mean Platelet Volume 10.7 fl (7.4-10.4); Monocytes # 0.4 K/mm3 (0.1-1.0); Monocytes % 7.4 % (1.7-9.3); Neutrophils # 3.9 K/mm3 (1.8-7.8); Neutrophils % 75.2 % (37.0-80.0); Nucleated Red Blood Cells # 0 10^3/uL; Nucleated Red Blood Cells % 0 %; Platelet Count 112 K/mm3 (142-424); Red Blood Count 4.67 M/mm3 (4.60-6.20); Red Cell Distribution Width 13.2 % (11.5-17.5); Red Cell Distribution Width-SD 47.8 fL; White Blood Count 5.2 K/mm3 (4.8-10.8)
[2025-04-03 21:03] LABS: Alanine Aminotransferase 31 U/L (12-78); Albumin Level 4.5 g/dl (3.5-5.0); Albumin/Globulin Ratio 1.9 (1.1-1.8); Alkaline Phosphatase 112 U/L (38-126); Anion Gap 8.8 mEq/L (5-15); Aspartate Amino Transferase 33 U/L (17-59); Bilirubin,Total 0.7 mg/dl (0.2-1.3); Blood Urea Nitrogen 26 mg/dl (9-20); Calcium 9.4 mg/dl (8.4-10.2); Carbon Dioxide 28 mmol/L (22.0-30.0); Chloride 106 mmol/L (98-107); Creatinine Clearance Estimated 61 mL/min (50-200); Estimated Glomerular Filt Rate 54 ml/min (>60); GFR (African American) 66 ML/MIN (>60); Globulin 2.4 g/dL (1.3-3.2); Glucose 233 mg/dl (74-100); Potassium 4.8 mmoL/L (3.5-5.1); Sodium 138 mmol/L (136-145); Total Protein,Serum 6.9 g/dl (6.3-8.2)
[2025-04-03 21:05] LABS: Activated Partial Thrombo Time 24.9 seconds (22.8-30.6); INR 0.96 (0.9-1.1); Prothrombin Time 10.7 seconds (10.1-12.5)
--- NOTE | 2025-04-03 21:31 | PC.NURSE ---
IV not working once patient gets to CT scan, Pt brought back to room 8 to await US IV placement.
--- NOTE | 2025-04-03 21:45 | PC.NURSE ---
ED provider at the bedside.
[2025-04-03 22:29] VITALS: BP 127/73; PULSE 68; RESP 14; TEMP 36.6; O2SAT 98
--- NOTE | 2025-04-07 12:42 | PC.NURSE ---
I consulted about the pts culture results. no change needed at this time.
== END 2025-04-03 22:30 | disposition home or self-care (01) ==
PROVIDERS: Emergency Provider Student in an Organized Health Care Education/Training Program; PCP Internal Medicine Adolescent Medicine
DX: R33.9 Retention of urine, unspecified (principal); R31.9 Hematuria, unspecified; N21.0 Calculus in bladder; N20.0 Calculus of kidney
CPT/HCPCS: 51798; 74176; 80053; 81001; 85025; 85610; 85730; 87086; 87088; 87186; 96360; 99284; J7120; Q9967